=== PATIENT | female | born 2000 | race Caucasian/White ===

== ENCOUNTER 2022-11-03 09:31 | Outpatient (OUT) | payer OTHER, SELFPAY ==
--- NOTE | 2022-11-03 09:30 | US_ITS ---
[address] [address] Patient Name: POONAM GEE MRN: [id number] date: 2000 Sex: F Assigned Patient Location: US Current Patient Location: US Accession/Order Number: [id number] Exam Date: 11/03/2022 09:31 Report Date: 11/03/2022 20:44 At the request of: CHARLETTE FALCON Procedure: US OB growth EXAMINATION: US OB growth HISTORY: SIZE INCONSISTENT WITH DATES COMPARISON: No relevant comparison available. FINDINGS: #: 1.0 Presentation: Cephalic presentation, longitudinal lie Heart Rate: 166.0 bpm Amniotic Fluid Volume: 11.8 cm cm Maximum Vertical Pocket: 5.1 cm cm 3.5 cm cm 3.3 cm cm 0.0 cm cm BIOMETRY: BPD: 8.4 cm cm; 33 weeks 4 days, 26% HC: 30.7 cm cm; 34 weeks 2 days, 13% AC: 32.7 cm cm; 36 weeks 5 days, 97% FL: 7.0 cm cm; 35 weeks 6 days, 77% EFW: 2776 g, 6 lbs. 2 oz., 84% FL/AC: 21.3 FL/BPD: 83.6 HC/AC: 0.9 GESTATIONAL AGE: LANCE by EDC: 34 weeks 3 days Age by EDC: 12/12/2022 Ultrasound Age: 35 weeks 1 day LANCE by US: 12/07/2022 US/US OB growth IMPRESSION: Abdominal circumference at the 97th percentile, otherwise normal interval growth Electronically authenticated by: ABDULKADIR REAGAN Date: 11/03/2022 20:44
== END 2022-11-03 09:32 | disposition home or self-care (01) ==
LOC: US 09:31
PROVIDERS: PCP Family Medicine; Visit Provider Obstetrics & Gynecology
DX: O26.843 Uterine size-date discrepancy, third trimester (principal); Z3A.00 Weeks of gestation of pregnancy not specified
CPT/HCPCS: 76816

== ENCOUNTER 2022-11-04 13:14 | Observation (INO) | payer OTHER, SELFPAY ==
[2022-11-04] VITALS (20 sets, daily range): BP systolic 116–136; BP diastolic 55–70; PULSE 71–100; RESP 18; TEMP 37
[2022-11-04 14:15] LABS: Amnisure NEGATIVE (NEGATIVE)
[2022-11-04] MEDS: 0.9 % SODIUM CHLORIDE 1,000 ML 999 ML IV (15:00)
[2022-11-04] MEDS: TERBUTALINE SULFATE 1 MG/ML VIAL 0.25 MG SUBQ (15:20)
--- NOTE | 2022-11-04 15:24 | US_ITS ---
The [address] [address] Patient Name: POONAM GEE MRN: [id number] date: 2000 Sex: F Assigned Patient Location: [facility] Current Patient Location: [facility] Accession/Order Number: [id number] Exam Date: 11/04/2022 15:25 Report Date: 11/04/2022 15:54 At the request of: HAI JUARES Procedure: US OB amniotic fluid vol PROCEDURE: US OB amniotic fluid vol, 11/04/2022 3:25 PM EDT CLINICAL INDICATIONS: Encounter for third trimester , leaking amniotic fluid, limited evaluation for fluid volume 1 para 0 Expected gestational age: 34 weeks 4 days Expected LANCE: 12/12/2022 COMPARISON: 11/03/2022 TECHNIQUE: Limited third trimester obstetric sonogram for amniotic fluid assessment. FINDINGS: Single living intrauterine identified, cephalic presentation. body, cardiac activity noted. Heart rate 165 bpm. Amniotic fluid index 12.1 cm, 5-95th percentile, maximum vertical pocket 5.3 cm. The fetus and placenta is otherwise not evaluated. No anatomic assessment was performed. biometry: Not performed. Maternal adnexal pathology is not demonstrated. US/US OB amniotic fluid vol IMPRESSION: 1. Single living intrauterine , cephalic presentation 2. Normal amniotic fluid index 12.1 cm, 5-95th percentile, maximum vertical pocket 5.3 cm. Electronically authenticated by: DANIKA CONTRERAS Date: 11/04/2022 15:54
--- NOTE | 2022-11-04 15:27 | P.OBHP_ITS ---
OB - H&P: HPI History of Present Illness Chief complaint: OBSERVATION : 1 Para: 0 Date of last menstrual period: DUE DATE: 12/12/22 Gestational age based on last menstrual period: 34 WEEKS 3 DAYS Narrative: [address] O[address] FALCON. PRESENTED TO [facility] WITH COMPLAINT OF POSSIBLE RUPTURE OF MEMBRANES. NO RECENT INTERCOURSE. ON [facility] THE FOLLOWING TESTS WERE ALL NEGATIVE: NITRAZINE, AMNISURE, FERN TEST. SSE DEMONSTRATED NO FLUID POOLING WITH COUGH OR LOSS OF FLUID THROUGH CERVICAL OS. ON EXAM, THE CERVIX WAS 2 CM, 50 PERCENT EFFACED, SOFT, MID TO POSTERIOR POSITION AND BALLOTTABLE. WHILE ON THE UNIT SHE BEGAN BHASKAR BUT THEY WERE NOT PAINFUL. WHILE BEING EVALUATED BY PHYSICIAN SHE RETAIL DIRECTOR A BOLUS OF 1000 CC OF LR AND 12.5 MG OF BETAMETHASONE AND 25 MCH SUBCU TERBUTALINE NOT TOCOLYTIC BUT TO WEAKEN CONTRACTIONS AND HOPEFULLY OBTAIN TIME FOR DECISION OF DISPOSITION TO BE MADE. History of Present Dating criteria: other (WE DO NOT HAVE ACCESS TO THE RECORDS THE OFFICE IS CLOSED AND THE RECORDS ARE NOT IN [employer].) care: good care Ultrasounds: other (HAS HAD MULTIPLE ULTRASOUNDS FOR DATING CONFIRMATION, ANATOMY AND MOST RECENTLY LAST WEEK FOR WEIGHT BABY MEASURING S > D) Abnormal ultrasound findings: CURRENT CHELSY PENDING complications comment: NONE Medical complications OB: none Labs Blood type: other ([facility] DOES NOT HAVE ACCESS TO THIS PATIENT'S RECORD THE OFFICE USES [employer] AND [facility] DOES NOT PERMIT [facility] TO HAVE ACCESS TO THE EHR. SO THE ONLY HISTORY OBTAINABLE IS WHAT THE PATIENT CAN RELATE) Narrative: NIYA HAS BEEN DILIGENTLY WORKING WITH THE NECESSARY PARTIES TO MAKE PATIENT RECORDS AVAILABLE TO [facility] DURING HOURS WHEN OFFICE IS CLOSED. THIS HAS BEEN AN ONGOING PROCESS AND NOT YET RESOLVED Review of Systems ROS Status of ROS 10 or more systems reviewed and unremarkable except as noted in history and below Gastrointestinal Reports: other (MILD CONTRACTIONS) Meds Home Medications and Allergies Allergies Allergy/AdvReac Type Severity Reaction Status Date / Time No Known Drug Allergies Allergy Verified 11/04/22 14:59 Exam Constitutional Vital Signs, click to edit/add: Last Vital Signs Pulse 78 11/04/22 15:25 BP 122/67 11/04/22 15:25 Documenting provider has reviewed patient's vital signs: yes Common normals: no apparent distress, average body habitus, oriented x3, no limitations, healthy appearing, alert and well nourished General appearance: cooperative, comfortable and well kempt Orientation/consciousness: Yes awake, Yes oriented to person, Yes oriented to place and Yes oriented to time HENMT Common normals: normocephalic and head/scalp atraumatic Eye Common normals: PERRL Pupil: accommodation reflex normal Neck & C-Spine Common normals: full ROM and supple Respiratory Common normals: normal respiratory effort Auscultation: clear to auscultation bilaterally Cardio Common normals: regular rate and regular rhythm GI Common normals: Normal to inspection, nondistended, normoactive bowel sounds present, soft to palpation and non-tender Inspection: other (GRAVID UTERUS) Common normals: no CVA tenderness, external appearance normal, appearance of the vagina normal and appearance of the cervix normal External Female Exam: normal appearance of the urethra Speculum exam - vagina: other (SSE: NO POOLING, NO LOSS OF FLUID WITH COUGH, NEG FERNING, NEG NITRAZINE) Speculum exam - cervix: cervical os open and other (2 CM/50%/MID TO POSTERIOR, BALLOTTABLE, VERTEX) Amniotic Fluid: no fluid (ALL TESTS FOR AMNIOTIC FLUID WERE NEGATIVE AND CHELSY WAS NORMAL AT 12CM. ) Extremity Common normals: normal to inspection and full ROM Neuro Common normals: oriented x3 and CN's II-XII intact bilaterally Sensorium/orientation: awake and alert Motor exam: strength 5/5 throughout Psych Common normals: mental status grossly normal, thought process normal, cooperative and affect normal Attitude: calm and engaged Activity/motor behavior: appropriate eye contact Results Labs Labs: [facility] WAS ABLE TO ACCESS LABS THROUGH ALLSCRIPTS: AFP NEG, HGB 13.6, HEMOGLOBIN AIC NORMAL, BLOOD TYPE O NEG, HEPATITIS NEG, RPR NEG,RUBELLA IMMUNE,HCV NEG, CT/GC NEG,VAG CULTURE NEG, PAP NEG, ONE HOUR GTT NORMAL OB - A/P Assessment and Plan (1) contractions: (2) SROM (spontaneous rupture of membranes): Plan SROM RULED OUT AT 34.3 DAYS BY SSE, AMNISURE, NITRAZINE TEST, FERNING AND NORMAL CHELSY. THIS PATIENT IS HAVING MILD CONTRACTIONS HOWEVER WE ARE OBSERVING FOR CERVICAL CHANGE. PRESENTLY SHE IS 2 CM/50/BALLOTTABLE AND VERTEX, CONSISTENCY SOFT. THE HEART TRACING IS CATEGORY I. THERE IS NO BLEEDING FROM THE VAGINA ALTHOUGH THE PATIENT DOES REPORT SHE HAS A LOW LYING PLACENTA. [facility] DOES NOT HAVE ACCESS TO THE PATIENTS EHR FROM THE OFFICE WHICH USES [employer] AND THE OWNERS OF [employer], ([facility]) NOT PERMITTING ACCESS TO AT PRESENT. SHE RECEIVED 25 MCG SUBCU OF TERBUTALINE IN ATTEMPTS TO WEAKEN CONTRACTIONS AND GAIN TIME TO FINISH EVALUATION BEFORE MAKING DECISION ON DISPOSITION. SHE WAS ALSO GIVEN ONE DOSE IM OF BETAMETHASONE 12.5 MG. FINALLY, SHE RECEIVED A BOLUS OF LR, (1000CC). IF THE CONTRACTIONS STOP, SHE WILL REMAIN ON [facility] FOR OBSERVATION FOR PTL. IF THE CONTRACTIONS DO NOT STOP SHE WILL BE TRANSFERRED TO [facility] WHICH HAS A NICU.
[2022-11-04] MEDS: 0.9 % SODIUM CHLORIDE 1,000 ML 125 ML IV (16:02)
== END 2022-11-04 19:55 | disposition short-term general hospital (02) ==
PROVIDERS: Admitting Provider Obstetrics & Gynecology; PCP Family Medicine; Visit Provider Obstetrics & Gynecology
DX: O47.03 False labor before 37 completed weeks of gestation, third trimester (principal); Z03.71 Encounter for suspected problem with amniotic cavity and membrane ruled out; Z3A.34 34 weeks gestation of pregnancy
CPT/HCPCS: 59025; 76815; 84112; 87081; 96372; G0378; G0379; J0702

== ENCOUNTER 2022-11-07 14:50 | Observation (INO) | payer OTHER, SELFPAY ==
[2022-11-07 15:04] VITALS: BP 119/74; PULSE 68; TEMP 36.6
[2022-11-07] MEDS: 0.9 % SODIUM CHLORIDE 1,000 ML 999 ML IV (15:27)
[2022-11-07] MEDS: NIFEdipine 10 MG CAPSULE 20 MG PO ×2 (15:28→21:15)
[2022-11-07] MEDS: 0.9 % SODIUM CHLORIDE 1,000 ML 125 ML IV (16:15)
--- NOTE | 2022-11-07 17:45 | PC.NURSE ---
up to BR to void. then returns to bed. denies pain or need.s
[2022-11-07] MEDS: ACETAMINOPHEN 325 MG TABLET 650 MG PO ×2 (18:01→22:16)
--- NOTE | 2022-11-07 18:45 | PC.NURSE ---
eats supper, denies ctx. reports relief from GARCIA after tylenol.
--- NOTE | 2022-11-07 19:05 | W.PC.ACHO ---
Registration Status: ADM URI Primary Language: Preferred Language: Active Medications Generic Name Dose Route Start Last Admin Trade Name Coretta PRN Reason Stop Dose Admin Acetaminophen 650 mg 11/07/22 17:54 11/07/22 18:01 Acetaminophen 325 Mg Tablet PO 650 mg Q4H PRN Administration Mild Pain Sodium Chloride 1,000 mls @ 999 mls/hr 11/07/22 15:18 11/07/22 15:27 Sodium Chloride 0.9% 1,000 Ml IV 999 mls/hr .Q1H1M SATINDER Administration Sodium Chloride 1,000 mls @ 125 mls/hr 11/07/22 16:30 11/07/22 16:15 Sodium Chloride 0.9% 1,000 Ml IV 125 mls/hr .Q8H SATINDER Administration Nifedipine 20 mg 11/07/22 16:00 11/07/22 15:28 Nifedipine 10 Mg Capsule PO 20 mg Q4H SATINDER Administration IV Insertion/Site Date of IV Line Insertion [20g 11/07/22 left Forearm] IV Insertion Time [20g left 15:28 Forearm] report relinquished
--- NOTE | 2022-11-07 20:29 | W.PC.ACHO ---
Registration Status: ADM URI Primary Language: Preferred Language: Report received at 1900. Active Medications Generic Name Dose Route Start Last Admin Trade Name Freq PRN Reason Stop Dose Admin Acetaminophen 650 mg 11/07/22 17:54 11/07/22 18:01 Acetaminophen 325 Mg Tablet PO 650 mg Q4H PRN Administration Mild Pain Sodium Chloride 1,000 mls @ 999 mls/hr 11/07/22 15:18 11/07/22 15:27 Sodium Chloride 0.9% 1,000 Ml IV 999 mls/hr .Q1H1M SATINDER Administration Sodium Chloride 1,000 mls @ 125 mls/hr 11/07/22 16:30 11/07/22 16:15 Sodium Chloride 0.9% 1,000 Ml IV 125 mls/hr .Q8H SATINDER Administration Nifedipine 20 mg 11/07/22 16:00 11/07/22 15:28 Nifedipine 10 Mg Capsule PO 20 mg Q4H SATINDER Administration IV Insertion/Site Date of IV Line Insertion [20g 11/07/22 left Forearm] IV Insertion Time [20g left 15:28 Forearm]
[2022-11-07 21:13] VITALS: TEMP 36.7
[2022-11-07 21:14] VITALS: BP 118/62; PULSE 86
[2022-11-07 21:15] VITALS: BP 118/62
[2022-11-07] MEDS: ZOLPIDEM TARTRATE 10 MG TABLET PO (23:09)
[2022-11-08 01:42] VITALS: BP 120/67
[2022-11-08] MEDS: NIFEdipine 10 MG CAPSULE PO ×2 (01:42→05:39)
[2022-11-08 01:43] VITALS: BP 120/67; PULSE 103
[2022-11-08 02:27] VITALS: RESP 16
[2022-11-08 05:39] VITALS: BP 117/65
[2022-11-08 05:40] VITALS: BP 117/65; PULSE 93
[2022-11-08 08:11] VITALS: BP 116/72; PULSE 85
--- NOTE | 2022-11-08 08:31 | P.OBPRC_ITS ---
Procedure Pre-op/Post-op diagnoses: iup at 39wks, breech presentation Procedure: NAME OF PROCEDURE: [ section ] PROCEDURE: Patient was taken back to the Operating Room where she was given a spinal anesthesia with Duramorph without difficulty. She was prepped and draped in the normal sterile fashion. A Pfannenstiel skin incision was then made 2 cm above the symphysis pubis and carried down to underlying rectus fascia using a Bovie. The fascia was incised in the midline and extended laterally using Oneill scissors. Two Lucrecia clamps were placed on the superior aspect of the fascia and dissected off the underlying rectus muscles. The same was performed on the inferior aspect as well. The muscles were then in the midline. Peritoneum was identified and entered bluntly. The peritoneum was then extended superiorly and inferiorly with good visualization of the bladder. The bladder blade was inserted. A low transverse incision was made on the patient's uterus and extended laterally digitally. The infant was then delivered atraumatically after the bladder blade was removed in the cephalic position. The cord was clamped and cut. Cord blood was obtained. The infant was handed off to awaiting team. The patient's placenta was spontaneously delivered. The uterus was then exteriorized. The uterus was cleared of all clots and debris. The bladder blade was reinserted. The patient's uterine incision was closed using #0 Vicryl in a running lock fashion. Excellent hemostasis was assured. The uterus was then returned to the patient's abdomen. The patient's abdomen was copiously irrigated using warm saline. Peritoneal gutters were cleared of all clots and debris. Again excellent hemostasis was assured. The patient's peritoneum was closed using 3-0 Vicryl in a running fashion. The patient's fascia was closed using #0 Vicryl in a running fashion. The patient's skin was closed using 4-0 Vicryl subcuticularly. The patient tolerated the procedure well. Sponge, lap, and needle counts were correct x2. The patient was taken to the Recovery Room in stable condition. Candle Making Supervisor: Kath Thomas Estimated blood loss (mL): 575 Disposition: PACU Anesthesia type: Spinal
--- NOTE | 2022-11-08 08:39 | US_ITS ---
[address] [address] Patient Name: POONAM GEE MRN: [facility]:[id number] date: 2000 Sex: F Assigned Patient Location: [facility] Current Patient Location: [facility] Accession/Order Number: [id number] Exam Date: 11/08/2022 08:42 Report Date: 11/08/2022 09:25 At the request of: CHARLETTE FALCON Procedure: US OB BPP w non-stress EXAM: US OB BPP w non-stress HISTORY: ctx COMPARISON: Obstetric ultrasound dated 11/04/2022 and 11/03/2022. TECHNIQUE: Routine sonographic biophysical profile. FINDINGS: breathing movement: Adequate, score 2 body movement: Adequate, score 2 tone: Adequate, score 2 Amniotic fluid: Adequate, score 2 Normal sonographic biophysical profile with a score of 8/8 There is a single live intrauterine with a heart rate of 141 bpm. There is adequate amount of amniotic fluid with the amniotic fluid index measuring 11.4 cm US/US OB BPP w non-stress IMPRESSION: Single live intrauterine with a heart rate of 141 bpm. Normal sonographic biophysical profile with a score of 8/8. Adequate amount of amniotic fluid with the amniotic fluid index measuring 11.4 cm. Electronically authenticated by: DEDE MARTINEZ Date: 11/08/2022 09:25
== END 2022-11-08 09:45 | disposition home or self-care (01) ==
PROVIDERS: Admitting Provider Obstetrics & Gynecology; PCP Family Medicine; Visit Provider Obstetrics & Gynecology
DX: O47.9 False labor, unspecified (principal); Z3A.00 Weeks of gestation of pregnancy not specified
CPT/HCPCS: 59025; 76818; G0378; G0379

== ENCOUNTER 2022-11-08 23:31 | Inpatient (IN) | payer OTHER, SELFPAY ==
[2022-11-08 23:50] VITALS: BP 128/76; PULSE 86; TEMP 36.6
[2022-11-09] VITALS (62 sets, daily range): BP systolic 99–168; BP diastolic 55–86; PULSE 69–109; RESP 16–20; TEMP 27.9–37
[2022-11-09 00:12] LABS: Bilirubin Urine NEGATIVE (NEGATIVE); Blood Urine NEGATIVE (NEGATIVE); Clarity Urine CLEAR (CLEAR); Color Urine LT. YELLOW (YELLOW); Glucose Urine UA NEGATIVE (NEGATIVE); Ketones Urine NEGATIVE (NEGATIVE); Leukocyte Esterase Urine NEGATIVE (NEGATIVE); Nitrite Urine NEGATIVE (NEGATIVE); Protein Urine NEGATIVE (NEG/TRACE); Urobilinogen Urine 0.2 EU/dL (0.2-1.0)
[2022-11-09 00:12] LABS: Amnisure POSITIVE (NEGATIVE)
[2022-11-09 00:16] LABS: Urine Microscopic Indicated NO
[2022-11-09 01:09] LABS: Amphetamine Screen Urine NEGATIVE (NEGATIVE); Barbiturates Screen Urine NEGATIVE (NEGATIVE); Benzodiazepines Screen Urine NEGATIVE (NEGATIVE); Buprenorphine Screen Urine NEGATIVE (NEGATIVE); Cannabinoid Screen Urine NEGATIVE (NEGATIVE); Cocaine Screen Urine NEGATIVE (NEGATIVE); Methadone Screen Urine NEGATIVE (NEGATIVE); Methamphetamines Screen Urine NEGATIVE (NEGATIVE); Opiate Screen Urine NEGATIVE (NEGATIVE); Oxycodone Screen Urine NEGATIVE (NEGATIVE); Phencyclidine Screen Urine NEGATIVE (NEGATIVE); Tricyclic Antidepressant Urine NEGATIVE (NEGATIVE)
[2022-11-09 01:10] LABS: Hematocrit 31.4 % (36.0-48.0); Hemoglobin 10.3 g/dL (12.0-16.0); Mean Corpuscular HGB Conc 32.8 g/dL (29.9-35.2); Mean Corpuscular Hemoglobin 26.8 pg (26.7-34.0); Mean Corpuscular Volume 81.8 fL (81.0-99.0); Mean Platelet Volume 9.2 fL (9.5-13.5); Platelet Count 411 10^3/uL (150-450); Red Blood Count 3.84 10^6/uL (4.20-5.40); Red Cell Distribution Width 13.2 % (11.0-15.0); White Blood Count 11.5 10^3/uL (4.0-11.0)
[2022-11-09] MEDS: 0.9 % SODIUM CHLORIDE 1,000 ML 125 ML IV (01:24)
[2022-11-09] MEDS: AMPICILLIN SODIUM 2,000 MG in 0.9 % SODIUM CHLORIDE 100 ML 100 MG IV (01:29)
[2022-11-09] MEDS: FENTANYL CITRATE/PF 100 MCG/2 ML VIAL EPIDURAL (04:06)
[2022-11-09] MEDS: 0.9 % SODIUM CHLORIDE 1,000 ML 1000 ML IV (04:08)
[2022-11-09] MEDS: ROPIVACAINE HCL/PF 400 MG/200 ML PREMIX 12 MG EPIDURAL (04:09)
[2022-11-09] MEDS: AMPICILLIN SODIUM 1,000 MG in 0.9 % SODIUM CHLORIDE 50 ML 50 MG IV ×2 (05:21→09:26)
--- NOTE | 2022-11-09 12:32 | PM.OBPRCVD ---
Procedure events: Labor < 37 Weeks Intrapartal events: None Induction method: none Delivery monitor: external FHT and external uterine Route of delivery: Episiotomy Description: midline Laceration description: perineal - 2nd degree Delivery repair: Vicryl Estimated blood loss (mL): 250 Anesthesia type: Epidural Disposition: PACU Infant Delivery date: 11/09/22 Gender: female presentation: vertex Placental delivery description: Spontaneous cord description: 3 Vessels and Nuchal Cord
[2022-11-09] MEDS: IBUPROFEN 600 MG TABLET PO (13:53)
--- NOTE | 2022-11-09 19:18 | W.PC.ACHO ---
Registration Status: ADM IN Primary Language: Swiss Preferred Language: Swiss Report given to Jeovany Rivera RN. Care relinquished. Active Medications Generic Name Dose Route Start Last Admin Trade Name Coretta PRN Reason Stop Dose Admin Acetaminophen 650 mg 11/09/22 12:34 Acetaminophen 325 Mg Tablet PO Q6H PRN Mild Pain Al Hydroxide/Mg Hydroxide 2,400 mg 11/09/22 12:34 Magnesium Hydroxide 2,400 Mg/10 Ml Oral.Susp PO Q6H PRN Dyspepsia Benzocaine/Menthol 1 applic 11/09/22 13:13 Benzocaine/Menthol 85 Gram Bottle TOPICAL ONCE PRN Pain Carboprost Tromethamine 250 mcg 11/09/22 00:42 Carboprost Tromethamine 250 Mcg/Ml 1 Ml Vial IM 11/10/22 13:00 Q15M PRN Bleeding Docusate Sodium 100 mg 11/10/22 09:00 Docusate Sodium 100 Mg Capsule PO BID SATINDER Sodium Chloride 1,000 mls @ 125 mls/hr 11/09/22 00:45 11/09/22 16:40 Sodium Chloride 0.9% 1,000 Ml IV Infused .Q8H SATINDER Infusion Ampicillin 1,000 mg/ Sodium 50 mls @ 100 mls/hr 11/09/22 05:00 11/09/22 16:38 Chloride IV Not Given Q4H SATINDER Oxytocin 20 unit/ Sodium 1,002 mls @ 125 mls/hr 11/09/22 12:45 11/09/22 13:32 Chloride IV 11/09/22 20:44 125 mls/hr Q8H SATINDER 125 mls/hr Administration Ibuprofen 600 mg 11/09/22 12:34 11/09/22 13:53 Ibuprofen 600 Mg Tablet PO 600 mg Q6H PRN Administration Moderate Pain Methylergonovine Maleate 0.2 mg 11/09/22 00:42 Methylergonovine Maleate 0.2 Mg/Ml Ampule IM 11/10/22 13:00 ONCE PRN Uterine Contractility/Contract Methylergonovine Maleate 0.2 mg 11/09/22 00:42 Methylergonovine Maleate 0.2 Mg Tablet PO 11/10/22 13:00 Q4H PRN Uterine Contractility/Contract Misoprostol 600 mcg 11/09/22 00:42 Misoprostol 100 Mcg Tablet PO 11/10/22 13:00 ONCE PRN Uterine Bleeding Misoprostol 800 mcg 11/09/22 00:42 Misoprostol 100 Mcg Tablet SL 11/10/22 13:00 ONCE PRN Uterine Bleeding Misoprostol 1,000 mcg 11/09/22 00:42 Misoprostol 100 Mcg Tablet [place] 11/10/22 13:00 ONCE PRN Uterine Bleeding Ondansetron HCl 4 mg 11/09/22 00:42 Ondansetron Pf 4 Mg/2 Ml Vial IV Q6H PRN Nausea And Vomiting Ondansetron HCl 4 mg 11/09/22 00:42 Ondansetron 4 Mg Rapdis Tablet SL Q6H PRN Nausea And Vomiting Senna 17.2 mg 11/09/22 20:00 Sennosides 8.6 Mg Tablet PO QHS PRN Constipation Simethicone 80 mg 11/09/22 12:34 Simethicone 80 Mg Tab.Chew PO QID PRN Abdominal Distention Temazepam 15 mg 11/09/22 20:00 Temazepam 15 Mg Capsule PO BEDTIME PRN Sleep Witch Blanka/Glycerin 1 each 11/09/22 13:15 Glycerin/Witch Blanka 1 Each Jar TOPICAL ONCE PRN Pain Diet Category Date Time Status Regular Consistency Diet Diet 11/09/22 Dinner Active Consults Category Date Time Status Consult to Anesthesiology Routine Cons 11/09/22 Ordered IV Insertion/Site Date of IV Line Insertion [ 11/09/22 Short PIV (<1.75 in) 20g right Wrist] IV Insertion Time [Short PIV ( 00:40 <1.75 in) 20g right Wrist] Neurology Patient orientation (short person,place,time,situation list) Respiratory Oxygen Delivery Method Room Air Renal Bladder Pattern Continent Catheter Date Urinary Catheter Removed 11/09/22 Date Urinary Catheter Removed 11/09/22 Date Urinary Catheter Removed 11/09/22 Date Urinary Catheter Removed 11/09/22 Date Urinary Catheter Removed 11/09/22 Date Urinary Catheter Removed 11/09/22 Date Urinary Catheter Removed 11/09/22 Date Urinary Catheter Removed 11/09/22
--- NOTE | 2022-11-09 19:28 | W.PC.ACHO ---
Registration Status: ADM IN Primary Language: Andorran Preferred Language: Andorran report received at 1900. Active Medications Generic Name Dose Route Start Last Admin Trade Name Freq PRN Reason Stop Dose Admin Acetaminophen 650 mg 11/09/22 12:34 Acetaminophen 325 Mg Tablet PO Q6H PRN Mild Pain Al Hydroxide/Mg Hydroxide 2,400 mg 11/09/22 12:34 Magnesium Hydroxide 2,400 Mg/10 Ml Oral.Susp PO Q6H PRN Dyspepsia Benzocaine/Menthol 1 applic 11/09/22 13:13 Benzocaine/Menthol 85 Gram Bottle TOPICAL ONCE PRN Pain Carboprost Tromethamine 250 mcg 11/09/22 00:42 Carboprost Tromethamine 250 Mcg/Ml 1 Ml Vial IM 11/10/22 13:00 Q15M PRN Bleeding Docusate Sodium 100 mg 11/10/22 09:00 Docusate Sodium 100 Mg Capsule PO BID SATINDER Sodium Chloride 1,000 mls @ 125 mls/hr 11/09/22 00:45 11/09/22 16:40 Sodium Chloride 0.9% 1,000 Ml IV Infused .Q8H SATINDER Infusion Ampicillin 1,000 mg/ Sodium 50 mls @ 100 mls/hr 11/09/22 05:00 11/09/22 16:38 Chloride IV Not Given Q4H SATINDER Oxytocin 20 unit/ Sodium 1,002 mls @ 125 mls/hr 11/09/22 12:45 11/09/22 13:32 Chloride IV 11/09/22 20:44 125 mls/hr Q8H SATINDER 125 mls/hr Administration Ibuprofen 600 mg 11/09/22 12:34 11/09/22 13:53 Ibuprofen 600 Mg Tablet PO 600 mg Q6H PRN Administration Moderate Pain Methylergonovine Maleate 0.2 mg 11/09/22 00:42 Methylergonovine Maleate 0.2 Mg/Ml Ampule IM 11/10/22 13:00 ONCE PRN Uterine Contractility/Contract Methylergonovine Maleate 0.2 mg 11/09/22 00:42 Methylergonovine Maleate 0.2 Mg Tablet PO 11/10/22 13:00 Q4H PRN Uterine Contractility/Contract Misoprostol 600 mcg 11/09/22 00:42 Misoprostol 100 Mcg Tablet PO 11/10/22 13:00 ONCE PRN Uterine Bleeding Misoprostol 800 mcg 11/09/22 00:42 Misoprostol 100 Mcg Tablet SL 11/10/22 13:00 ONCE PRN Uterine Bleeding Misoprostol 1,000 mcg 11/09/22 00:42 Misoprostol 100 Mcg Tablet [place] 11/10/22 13:00 ONCE PRN Uterine Bleeding Ondansetron HCl 4 mg 11/09/22 00:42 Ondansetron Pf 4 Mg/2 Ml Vial IV Q6H PRN Nausea And Vomiting Ondansetron HCl 4 mg 11/09/22 00:42 Ondansetron 4 Mg Rapdis Tablet SL Q6H PRN Nausea And Vomiting Senna 17.2 mg 11/09/22 20:00 Sennosides 8.6 Mg Tablet PO QHS PRN Constipation Simethicone 80 mg 11/09/22 12:34 Simethicone 80 Mg Tab.Chew PO QID PRN Abdominal Distention Temazepam 15 mg 11/09/22 20:00 Temazepam 15 Mg Capsule PO BEDTIME PRN Sleep Witch Blanka/Glycerin 1 each 11/09/22 13:15 Glycerin/Witch Blanka 1 Each Jar TOPICAL ONCE PRN Pain Diet Category Date Time Status Regular Consistency Diet Diet 11/09/22 Dinner Active Consults Category Date Time Status Consult to Anesthesiology Routine Cons 11/09/22 Ordered IV Insertion/Site Date of IV Line Insertion [ 11/09/22 Short PIV (<1.75 in) 20g right Wrist] IV Insertion Time [Short PIV ( 00:40 <1.75 in) 20g right Wrist] Neurology Patient orientation (short person,place,time,situation list) Respiratory Oxygen Delivery Method Room Air Renal Bladder Pattern Continent Catheter Date Urinary Catheter Removed 11/09/22 Date Urinary Catheter Removed 11/09/22 Date Urinary Catheter Removed 11/09/22 Date Urinary Catheter Removed 11/09/22 Date Urinary Catheter Removed 11/09/22 Date Urinary Catheter Removed 11/09/22 Date Urinary Catheter Removed 11/09/22 Date Urinary Catheter Removed 11/09/22
[2022-11-09] MEDS: ACETAMINOPHEN 325 MG TABLET 650 MG PO (22:03)
[2022-11-10] VITALS (12 sets, daily range): BP systolic 121–130; BP diastolic 75–79; PULSE 75–81; RESP 16; TEMP 36.2–36.7
[2022-11-10] MEDS: IBUPROFEN 600 MG TABLET PO ×4 (00:31→20:37)
[2022-11-10] MEDS: ACETAMINOPHEN 325 MG TABLET 650 MG PO ×3 (04:34→23:18)
[2022-11-10 06:15] LABS: Basophils Absolute Auto 0.1 10^3/uL (0.0-0.1); Basophils Percent Auto 0.5 % (0.2-2.0); Eosinophils Absolute Auto 0.2 10^3/uL (0.0-0.7); Eosinophils Percent Auto 1.4 % (0.9-7.0); Hematocrit 30.9 % (36.0-48.0); Hemoglobin 9.8 g/dL (12.0-16.0); Immature Granulocytes Abs Auto 0.17 10^3/uL (0.00-0.03); Lymphocytes Absolute Auto 4.1 10^3/uL (1.2-3.8); Lymphocytes Percent Auto 25.3 % (20.5-60.0); Mean Corpuscular HGB Conc 31.7 g/dL (29.9-35.2); Mean Corpuscular Hemoglobin 26.1 pg (26.7-34.0); Mean Corpuscular Volume 82.4 fL (81.0-99.0); Mean Platelet Volume 8.7 fL (9.5-13.5); Monocytes Absolute Auto 1.2 10^3/uL (0.3-0.8); Monocytes Percent Auto 7.6 % (1.7-12.0); Neutrophils Absolute Auto 10.5 10^3/uL (1.4-6.5); Neutrophils Percent Auto 64.2 % (43.0-75.0); Platelet Count 323 10^3/uL (150-450); Red Blood Count 3.75 10^6/uL (4.20-5.40); Red Cell Distribution Width 13.3 % (11.0-15.0); White Blood Count 16.3 10^3/uL (4.0-11.0)
--- NOTE | 2022-11-10 08:37 | PC.NURSE ---
Pt education on late infant. Handouts x 3 given for LPI information with discussion, demo and time for questions. Parents appear receptive to education and open to making feeding plan that includes latching, possible shield use, pumping and feeding easy milk to the baby. The importance of colostrum for the LPI, manual expression, pump use and skin to skin reviewed. No further questions at this time. Parents verbalize understanding.
--- NOTE | 2022-11-10 08:43 | PM.OBPN ---
OB - PN: Subj Subjective Patient comments: no complaints [place] status: doing well Exam Constitutional Vital Signs, click to edit/add: Last Vital Signs Temp 97.5 F L 11/10/22 04:34 Pulse 79 11/10/22 08:34 Resp 16 11/10/22 04:25 BP 123/76 11/10/22 08:34 O2 Del Method Room Air 11/10/22 00:00 Documenting provider has reviewed patient's vital signs: yes Common normals: no apparent distress General appearance: cooperative, comfortable and well kempt Orientation/consciousness: Yes awake, Yes oriented to person, Yes oriented to place and Yes oriented to time HENMT Common normals: normocephalic Neck & C-Spine Common normals: full ROM Lymph Lymphatic: no lymphadenopathy noted Chest Common normals: inspection of chest normal Respiratory Common normals: normal respiratory effort Effort & inspection: able to speak in complete sentences Auscultation: clear to auscultation bilaterally Cardio Common normals: no JVD, regular rate and regular rhythm Rate: regular rate Rhythm: regular rhythm GI Common normals: Normal to inspection, nondistended, normoactive bowel sounds present Inspection: normal to inspection Auscultation: normoactive bowel sounds Palpation: soft and firm Common normals: no CVA tenderness Back & Pelvis Common normals: no CVA tenderness Extremity Common normals: full ROM Neuro Common normals: oriented x3 Sensorium/orientation: awake, alert, oriented to person, oriented to place and oriented to time Psych Attitude: calm Results Labs Labs: Short CBC 11/10/22 Range/Units 06:06 WBC 16.3 H (4.0-11.0) 10^3/uL Hgb 9.8 L (12.0-16.0) g/dL Hct 30.9 L (36.0-48.0) % Plt Count 323 (150-450) 10^3/uL OB - PN: A/P Plan - Vaginal Delivery day: 1 Plan: routine care Time Spent with Patient Time: Total time spent is greater than 50% in coordination of care (as documented) at patient's floor/unit and/or counseling patient: Total time spent with greater than 50% in coordination of care (as documented) at patient's floor/unit and/or counseling patient: less than 15 minutes
[2022-11-10] MEDS: DOCUSATE SODIUM 100 MG CAPSULE PO ×2 (09:11→20:38)
[2022-11-10] MEDS: FERROUS SULFATE 325 MG TABLET PO ×2 (09:11→20:37)
--- NOTE | 2022-11-10 11:45 | PC.NURSE ---
Attentive to education. Working well with 35 week infant. Receptive to positioning and deep latch technique. Handles baby well. Infant latches and suckles few times then stops. Open to use of nipple shield, explanation of use in LPI and benefits and cons reviewed. Parents agreeable. Shown correct application of shield and demo given. to breast with shield and continues to suckle with bursts and pauses. Mom aware of feeing plans and cooperative. Support given.
--- NOTE | 2022-11-10 19:09 | W.PC.ACHO ---
Registration Status: ADM IN Primary Language: Burmese Preferred Language: Burmese Active Medications Generic Name Dose Route Start Last Admin Trade Name Freq PRN Reason Stop Dose Admin Acetaminophen 650 mg 11/09/22 12:34 11/10/22 16:27 Acetaminophen 325 Mg Tablet PO 650 mg Q6H PRN Administration Mild Pain Al Hydroxide/Mg Hydroxide 2,400 mg 11/09/22 12:34 Magnesium Hydroxide 2,400 Mg/10 Ml Oral.Susp PO Q6H PRN Dyspepsia Docusate Sodium 100 mg 11/10/22 09:00 11/10/22 09:11 Docusate Sodium 100 Mg Capsule PO 100 mg BID SATINDER Administration Ferrous Sulfate 325 mg 11/10/22 09:00 11/10/22 09:11 Ferrous Sulfate 325 Mg Tablet PO 325 mg BID SATINDER Administration Sodium Chloride 1,000 mls @ 125 mls/hr 11/09/22 00:45 11/09/22 16:40 Sodium Chloride 0.9% 1,000 Ml IV Infused .Q8H [facility] Infusion Ampicillin 1,000 mg/ Sodium 50 mls @ 100 mls/hr 11/09/22 05:00 11/09/22 16:38 Chloride IV Not Given Q4H [facility] Ibuprofen 600 mg 11/09/22 12:34 11/10/22 14:50 Ibuprofen 600 Mg Tablet PO 600 mg Q6H PRN Administration Moderate Pain Ondansetron HCl 4 mg 11/09/22 00:42 Ondansetron Pf 4 Mg/2 Ml Vial IV Q6H PRN Nausea And Vomiting Ondansetron HCl 4 mg 11/09/22 00:42 Ondansetron 4 Mg Rapdis Tablet SL Q6H PRN Nausea And Vomiting Senna 17.2 mg 11/09/22 20:00 Sennosides 8.6 Mg Tablet PO QHS PRN Constipation Simethicone 80 mg 11/09/22 12:34 Simethicone 80 Mg Tab.Chew PO QID PRN Abdominal Distention Temazepam 15 mg 11/09/22 20:00 Temazepam 15 Mg Capsule PO BEDTIME PRN Sleep Respiratory Oxygen Delivery Method Room Air Oxygen Delivery Method Room Air Oxygen Delivery Method Room Air Bowels Bowel Pattern No Bowel Movement
--- NOTE | 2022-11-10 19:27 | W.PC.ACHO ---
Registration Status: ADM IN Primary Language: Bahraini Preferred Language: Bahraini Report received at 1910 Active Medications Generic Name Dose Route Start Last Admin Trade Name Freq PRN Reason Stop Dose Admin Acetaminophen 650 mg 11/09/22 12:34 11/10/22 16:27 Acetaminophen 325 Mg Tablet PO 650 mg Q6H PRN Administration Mild Pain Al Hydroxide/Mg Hydroxide 2,400 mg 11/09/22 12:34 Magnesium Hydroxide 2,400 Mg/10 Ml Oral.Susp PO Q6H PRN Dyspepsia Docusate Sodium 100 mg 11/10/22 09:00 11/10/22 09:11 Docusate Sodium 100 Mg Capsule PO 100 mg BID SATINDER Administration Ferrous Sulfate 325 mg 11/10/22 09:00 11/10/22 09:11 Ferrous Sulfate 325 Mg Tablet PO 325 mg BID SATINDER Administration Sodium Chloride 1,000 mls @ 125 mls/hr 11/09/22 00:45 11/09/22 16:40 Sodium Chloride 0.9% 1,000 Ml IV Infused .Q8H SATINDER Infusion Ampicillin 1,000 mg/ Sodium 50 mls @ 100 mls/hr 11/09/22 05:00 11/09/22 16:38 Chloride IV Not Given Q4H SATINDER Ibuprofen 600 mg 11/09/22 12:34 11/10/22 14:50 Ibuprofen 600 Mg Tablet PO 600 mg Q6H PRN Administration Moderate Pain Ondansetron HCl 4 mg 11/09/22 00:42 Ondansetron Pf 4 Mg/2 Ml Vial IV Q6H PRN Nausea And Vomiting Ondansetron HCl 4 mg 11/09/22 00:42 Ondansetron 4 Mg Rapdis Tablet SL Q6H PRN Nausea And Vomiting Senna 17.2 mg 11/09/22 20:00 Sennosides 8.6 Mg Tablet PO QHS PRN Constipation Simethicone 80 mg 11/09/22 12:34 Simethicone 80 Mg Tab.Chew PO QID PRN Abdominal Distention Temazepam 15 mg 11/09/22 20:00 Temazepam 15 Mg Capsule PO BEDTIME PRN Sleep Respiratory Oxygen Delivery Method Room Air Oxygen Delivery Method Room Air Oxygen Delivery Method Room Air Bowels Bowel Pattern No Bowel Movement
[2022-11-11] MEDS: IBUPROFEN 600 MG TABLET PO ×2 (05:12→10:50)
--- NOTE | 2022-11-11 07:20 | W.PC.ACHO ---
Registration Status: ADM IN Primary Language: Burmese Preferred Language: Burmese report given 0710. Active Medications Generic Name Dose Route Start Last Admin Trade Name Freq PRN Reason Stop Dose Admin Acetaminophen 650 mg 11/09/22 12:34 11/10/22 23:18 Acetaminophen 325 Mg Tablet PO 650 mg Q6H PRN Administration Mild Pain Al Hydroxide/Mg Hydroxide 2,400 mg 11/09/22 12:34 Magnesium Hydroxide 2,400 Mg/10 Ml Oral.Susp PO Q6H PRN Dyspepsia Docusate Sodium 100 mg 11/10/22 09:00 11/10/22 20:38 Docusate Sodium 100 Mg Capsule PO 100 mg BID SATINDER Administration Ferrous Sulfate 325 mg 11/10/22 09:00 11/10/22 20:37 Ferrous Sulfate 325 Mg Tablet PO 325 mg BID SATINDER Administration Sodium Chloride 1,000 mls @ 125 mls/hr 11/09/22 00:45 11/09/22 16:40 Sodium Chloride 0.9% 1,000 Ml IV Infused .Q8H SATINDER Infusion Ampicillin 1,000 mg/ Sodium 50 mls @ 100 mls/hr 11/09/22 05:00 11/09/22 16:38 Chloride IV Not Given Q4H SATINDER Ibuprofen 600 mg 11/09/22 12:34 11/11/22 05:12 Ibuprofen 600 Mg Tablet PO 600 mg Q6H PRN Administration Moderate Pain Ondansetron HCl 4 mg 11/09/22 00:42 Ondansetron Pf 4 Mg/2 Ml Vial IV Q6H PRN Nausea And Vomiting Ondansetron HCl 4 mg 11/09/22 00:42 Ondansetron 4 Mg Rapdis Tablet SL Q6H PRN Nausea And Vomiting Senna 17.2 mg 11/09/22 20:00 Sennosides 8.6 Mg Tablet PO QHS PRN Constipation Simethicone 80 mg 11/09/22 12:34 Simethicone 80 Mg Tab.Chew PO QID PRN Abdominal Distention Temazepam 15 mg 11/09/22 20:00 Temazepam 15 Mg Capsule PO BEDTIME PRN Sleep Respiratory Oxygen Delivery Method Room Air Oxygen Delivery Method Room Air Bowels Bowel Pattern No Bowel Movement
[2022-11-11] MEDS: ACETAMINOPHEN 325 MG TABLET 650 MG PO (08:15)
[2022-11-11] MEDS: DOCUSATE SODIUM 100 MG CAPSULE PO (08:15)
[2022-11-11] MEDS: FERROUS SULFATE 325 MG TABLET PO (08:15)
[2022-11-11 08:47] VITALS: BP 115/71; PULSE 104; RESP 16; TEMP 36.9
--- NOTE | 2022-11-11 09:56 | P.OBPN_ITS ---
OB - PN: Subj Subjective Patient comments: no complaints Wild Horse status: doing well Exam Constitutional Vital Signs, click to edit/add: Last Vital Signs Temp 98.5 F 11/11/22 08:47 Pulse 104 H 11/11/22 08:47 Resp 16 11/11/22 08:47 BP 115/71 11/11/22 08:47 O2 Del Method Room Air 11/10/22 23:15 Documenting provider has reviewed patient's vital signs: yes Common normals: no apparent distress Respiratory Common normals: normal respiratory effort and clear to auscultation bilaterally Cardio Common normals: regular rate and regular rhythm GI Common normals: Normal to inspection, nondistended, normoactive bowel sounds present Extremity Common normals: no clubbing, cyanosis or edema and no calf tenderness OB - PN: A/P Plan - Vaginal Delivery day: 2 Plan: routine care, discharge home and follow up 6 weeks Time Spent with Patient Time: Total time spent is greater than 50% in coordination of care (as documented) at patient's floor/unit and/or counseling patient: Total time spent with greater than 50% in coordination of care (as documented) at patient's floor/unit and/or counseling patient: less than 15 minutes
== END 2022-11-11 11:05 | disposition home or self-care (01) | DRG 560 ==
PROVIDERS: Admitting Provider Obstetrics & Gynecology; PCP Family Medicine; Visit Provider Obstetrics & Gynecology
DX: O60.14X0 Preterm labor third trimester with preterm delivery third trimester, not applicable or unspecified (principal); Z3A.35 35 weeks gestation of pregnancy; Z37.0 Single live birth; O70.1 Second degree perineal laceration during delivery; O69.81X0 Labor and delivery complicated by cord around neck, without compression, not applicable or unspecified
CPT/HCPCS: 36415; 51702; 59025; 59050; 59410; 76818; 80307; 81003; 84112; 85025; 85027; 86850; 86900; 86901; 96365; 96375; 96376; G0378; G0379

== ENCOUNTER 2023-12-14 12:04 | Outpatient (OUT) | payer OTHER, SELFPAY ==
[2023-12-14 12:18] LABS: Basophils Percent Auto 0.6 % (0.2-2.0); Eosinophils Absolute Auto 0.1 10^3/uL (0.0-0.7); Hematocrit 41.8 % (36.0-48.0); Hemoglobin 14.3 g/dL (12.0-16.0); Immature Granulocytes Abs Auto 0.01 10^3/uL (0.00-0.03); Immature Granulocytes Pct Auto 0.2 % (0.0-0.5); Lymphocytes Absolute Auto 2.5 10^3/uL (1.2-3.8); Lymphocytes Percent Auto 39.4 % (20.5-60.0); Mean Corpuscular HGB Conc 34.2 g/dL (29.9-35.2); Mean Corpuscular Hemoglobin 29.7 pg (26.7-34.0); Mean Corpuscular Volume 86.9 fL (81.0-99.0); Mean Platelet Volume 9.1 fL (9.5-13.5); Monocytes Absolute Auto 0.5 10^3/uL (0.3-0.8); Monocytes Percent Auto 7.8 % (1.7-12.0); Neutrophils Absolute Auto 3.2 10^3/uL (1.4-6.5); Platelet Count 295 10^3/uL (150-450); Red Blood Count 4.81 10^6/uL (4.20-5.40); Red Cell Distribution Width 11.9 % (11.0-15.0); White Blood Count 6.5 10^3/uL (4.0-11.0)
[2023-12-14 13:03] LABS: Estimated Average Glucose 94 mg/dL; Glycohemoglobin A1C 4.9 % (4.5-6.2)
[2023-12-14 13:28] LABS: Alanine Aminotransferase 20 U/L (14-59); Albumin Globulin Ratio 1.2; Albumin Level 4.2 g/dL (3.4-5.0); Alkaline Phosphatase 123 U/L (46-116); Anion Gap 12.6; Aspartate Amino Transferase 17 U/L (15-37); BUN Creatinine Ratio 17.2; Bilirubin Total 0.8 mg/dL (0.2-1.0); Calcium 8.8 mg/dL (8.5-10.1); Carbon Dioxide 28.3 mmol/L (21.0-32.0); Chloride 100 mmol/L (98-107); Chol HDL Ratio 2.2; Cholesterol 131 mg/dL (<=200); Estimated GFR (African America >60 (>=60); Estimated GFR (Non-African Ame >60 (>=60); Globulin 3.4 g/dL; Glucose 80 mg/dL (74-106); HDL Cholesterol 59 mg/dL (40-60); Potassium 3.9 mmol/L (3.5-5.1); Sodium 137 mmol/L (136-145); Thyroid Stimulating Hormone 1.924 uIU/mL (0.358-3.740); Total Protein 7.6 g/dL (6.4-8.2); Triglycerides 30 mg/dL (<=150)
[2023-12-19 12:09] LABS: Age Gdln ACOG Testing Note (.); IGP, rfx Aptima HPV ASCU Note (.)
== END 2023-12-14 12:05 | disposition home or self-care (01) ==
LOC: LAB 12:07
PROVIDERS: PCP Family Medicine; Visit Provider Physician Assistant
DX: Z01.419 Encounter for gynecological examination (general) (routine) without abnormal findings (principal)
CPT/HCPCS: 36415; 80053; 80061; 83036; 84443; 85025; 88175

== ENCOUNTER 2024-12-26 13:38 | Outpatient (REF) | payer OTHER, SELFPAY ==
--- OUTSIDE RECORDS SUMMARY | 2024-12-26 08:30 | XMS_ITS | Encounter Summary ---
Author Organization [facility] Address [address] [place] [address] Care Team Providers Care Edi Specialist Name Role Phone Fredy Plaza MD Primary Care Provider [phone] Reason for Visit * Reason Comments Well Women Visit Encounter Details Date Type Department Care Team (Latest Contact Info) Description 12/26/2024 8:30 AM EDT Procedure Visit ROXY KABA [address] [place] [address] Ese Beltrán PA [address] [place], [place] [address] Well woman exam with routine gynecological exam; Acute vaginitis Social History Tobacco Use Types Packs/Day Years Used Date Smoking Tobacco: Never Assessed Comments Unknown Sex and Gender Information Value Date Recorded Sex Assigned at Not on file Legal Sex Female 7:14 PM EDT Gender Identity Not on file Sexual Orientation Not on file documented as of this encounter Last Filed Vital Signs Vital Sign Reading Time Taken Comments Blood Pressure 100/60 12/26/2024 8:33 AM EDT Pulse - - Temperature - - Respiratory Rate - - Oxygen Saturation - - Inhaled Oxygen Concentration - - Weight 60.1 kg (132 lb 6.4 oz) 12/26/2024 8:33 A M EDT Height - - Body Mass Index 22.73 08/16/2022 12:00 PM EDT documented in this encounter Progress Notes * BEN sHu - 12/26/2024 8:30 AM EDT Reason for Appointment: Patient ID: Marcelle Pendleton is a 24 y.o. female who presents for Well Women Visit Patient presents today for Annual Exam. MEDICATIONS Current Outpatient Medications Medication Instructions norethindrone (DEBLITANE) 0.35 mg, Oral, Daily ALLERGIES No Known Allergies PROBLEMS Active Ambulatory Problems Diagnosis Date Noted No Active Ambulatory Problems Resolved Ambulatory Problems Diagnosis Date Noted No Resolved Ambulatory Problems No Additional Past Medical History HISTORY PAST MEDICAL HISTORY SOCIAL HISTORY History reviewed. No pertinent past medical history. Social History Tobacco Use Smoking status: Not on file Smokeless tobacco: Not on file Substance Use Topics Alcohol use: Not on file Drug use: Not on file FAMILY HISTORY Family History Problem Relation Name Age of Onset Breast cancer Mother SURGICAL HISTORY History reviewed. No pertinent surgical history. REVIEW OF SYSTEMS Review of Systems: Review of Systems Constitutional: Negative. HENT: Negative. Eyes: Negative. Respiratory: Negative. Cardiovascular: Negative. Gastrointestinal: Negative. Genitourinary: Negative. Musculoskeletal: Negative. Skin: Negative. Neurological: Negative. All other systems reviewed and are negative. Hematological: Negative. Endocrine: Negative. Allergic/Immunologic: Negative. OBJECTIVE Objective: Physical Exam Constitutional: Appearance: Normal appearance. She is well-developed. Genitourinary: Vulva normal. Right Adnexa: not tender and no mass present. Left Adnexa: not tender and no mass present. No cervical discharge. Breasts: Breasts are soft. Right: Normal. Left: Normal. HENT: Head: Normocephalic. Nose: Nose normal. Mouth/Throat: Mouth: Mucous membranes are moist. Cardiovascular: Rate and Rhythm: Normal rate and regular rhythm. Pulmonary: Effort: Pulmonary effort is normal. Breath sounds: Normal breath sounds. Abdominal: General: Bowel sounds are normal. There is no distension. Palpations: Abdomen is soft. Tenderness: There is no abdominal tenderness. There is no guarding or rebound. Musculoskeletal: General: No swelling. Normal range of motion. Cervical back: Normal range of motion. Right lower leg: No edema. Left lower leg: No edema. Neurological: General: No focal deficit present. Mental Status: She is alert and oriented to person, place, and time. Skin: General: Skin is warm and dry. Psychiatric: Mood and Affect: Mood normal. Behavior: Behavior normal. Vitals and nursing note reviewed. Exam conducted with a acid strength inspector present. Vitals: Estimated body mass index is 22.73 kg/m?? as calculated from the following: Height as of 08/16/22: 5' 4 . Weight as of this encounter: 132 lb 6.4 oz. BP: 100/60 Patient's last menstrual period was 11/10/2024. ASSESSMENT & PLAN ICD-10-CM 1. Well woman exam with routine gynecological exam Z01.419 Pap Smear Annual Exam: Patient presents today for an annual exam. Patient states she is doing well and has no complaints. Pap was obtained without difficulty. No orders of the defined types were placed in this encounter. Patient states she is still having pain with intercourse on the upper aspect of episotomy scar. We will send in clobetasole and premarin cream to see if it helps with symptoms. Pt also encouraged to use coconut oil to area. Follow Up: Patient is to return in one year for annual unless needed otherwise. Pt will follow up with telehealth after trying medications Documented by Marci Acevedo LPN on behalf of: BEN Hsu documented in this encounter Miscellaneous Notes * Addendum Note - BEN Hsu - 12/26/2024 8:30 AM EDTAddended by: ESE BELTRÁN on: 12/26/2024 10:09 AM Modules accepted: Orders documented in this encounter Plan of Treatment Scheduled Orders Name Type Priority Associated Diagnoses Orde r Schedule Pap Smear Pathology and Cytology Routine Well woman exam with routine gynecological exam Ordered: 12/26/2024 documented as of this encounter Visit Diagnoses Diagnosis Well woman exam with routine gynecological exam Routine gynecological examination Acute vaginitis Unspecified vaginitis and vulvovaginitis documented in this encounter Care Teams Edi Specialist Relationship Specialty Start Date End Date Fredy Plaza MD PCP - General Family Medicine 09/15/22 documented as of this encounter
--- OUTSIDE RECORDS SUMMARY | 2024-12-26 13:43 | XMS_ITS | Encounter Summary ---
Author Organization [facility] Address [address] [place] [address] Care Team Providers Care Land Surveying Survey Worker Name Role Phone Fredy Plaza MD Primary Care Provider [phone] Encounter Details Date Type Department Care Team (Late st Contact Info) Description 12/26/2024 Bamboo flowsheet [facility] [address] [facility] [phone] Ese Faria PA [address] [place], [facility] Social History Tobacco Use Types Packs/Day Years Used Date Smoking Tobacco: Never Assessed Comments Unknown Sex and Gender Information Value Date Recorded Sex Assigned at Not on file Legal Sex Female 7:14 PM EDT Gender Identity Not on file Sexual Orientation Not on file documented as of this encounter Plan of Treatment Not on file documented as of this encounter Visit Diagnoses Not on filedocumented in this encounter Care Teams Land Surveying Survey Worker Relationship Specialty Start Date End Date Fredy Plaza MD PCP - General Family Medicine 09/15/22 documented as of this encounter
--- OUTSIDE RECORDS SUMMARY | 2024-12-26 13:43 | XMS_ITS | Encounter Summary ---
Author Organization [facility] Address [address] [facility] [place] [address] Care Team Providers Care Soap Worker Name Role Phone Fredy Plaza MD Primary Care Provider [phone] Encounter Details Date Type Department Care Team (Late st Contact Info) Description 12/21/2023 Orders Only [facility] [address] [facility] [address] [place] [address] Marci Acevedo LPN [address] [place] [id number] Social History Tobacco Use Types Packs/Day Years Used Date Smoking Tobacco: Never Assessed Comments Unknown Sex and Gender Information Value Date Recorded Sex Assigned at Not on file Legal Sex Female 7:14 PM EDT Gender Identity Not on file Sexual Orientation Not on file documented as of this encounter Plan of Treatment Not on file documented as of this encounter Procedures Procedure Name Priority Date/Time Associated Diagnosis Comments PAP SMEAR Routine 12/14/2023 12:00 AM EDT documented in this encounter Results * Pap Smear (12/14/2023 12:00 AM EDT) Swab Cervical swab / Unknown us [facility] ORDERABLES Final Re sult EXTERNAL LAB documented in this encounter Visit Diagnoses Not on filedocumented in this encounter Care Teams Soap Worker Relationship Specialty Start Date End Date Fredy Plaza MD PCP - General Family Medicine 09/15/22 documented as of this encounter
--- OUTSIDE RECORDS SUMMARY | 2024-12-26 13:43 | XMS_ITS | Encounter Summary ---
Author Organization [facility] Address [address] [place] [address] Care Team Providers Care Extractions Technologist Name Role Phone Fredy Plaza MD Primary Care Provider [phone] Encounter Details Date Type Department Care Team (Late st Contact Info) Description 11/10/2022 Abstract [facility] [address] [place] [address] [place] [address] Radha [place] LPN Social History Tobacco Use Types Packs/Day Years Used Date Smoking Tobacco: Never Assessed Comments Yes Sex and Gender Information Value Date Recorded Sex Assigned at Not on file Legal Sex Female 7:14 PM EDT Gender Identity Not on file Sexual Orientation Not on file COVID-19 Exposure Response Date Recorded In the last 10 days, have yo u been in contact with someone who was confirmed or suspected to have Coronavirus/COVID-19? No / Unsure 11/07/2022 9:33 AM EDT documented as of this encounter Plan of Treatment Not on file documented as of this encounter Visit Diagnoses Not on filedocumented in this encounter Care Teams Extractions Technologist Relationship Specialty Start Date End Date Fredy Plaza MD PCP - General Family Medicine 09/15/22 documented as of this encounter
--- OUTSIDE RECORDS SUMMARY | 2024-12-26 13:43 | XMS_ITS | Encounter Summary ---
Author Organization [facility] Address [address] [facility] [place] [address] Care Team Providers Care External Auditor Name Role Phone Fredy Plaza MD Primary Care Provider [phone] Encounter Details Date Type Department Care Team (Late st Contact Info) Description 12/06/2022 Abstract [facility] [address] [place] [phone] Veronica Álvarez LPN [address] [place] [id number] Social History Tobacco Use Types Packs/Day Years [...] on filedocumented in this encounter Care Teams External Auditor Relationship Specialty Start Date End Date Fredy Plaza MD PCP - General Family Medicine 09/15/22 documented as of this encounter
--- OUTSIDE RECORDS SUMMARY | 2024-12-26 13:43 | XMS_ITS | Encounter Summary ---
Author Organization [facility] Address [address] [facility] [place] [address] Care Team Providers Care Finishing Powder Press Operator Name Role Phone Fredy Plaza MD Primary Care Provider [phone] Reason for Visit * Reason Comments Med Change Request Encounter Details Date Type Department Care Team (Late st Contact Info) Description 12/26/2024 Refill [facility] [address] [place] [address] Ese Faria PA [address] [facility] [address] [place], [facility] Acute vaginitis Social History Tobacco Use Types [...] as of this encounter Visit Diagnoses Diagnosis Acute vaginitis Unspecified vaginitis and vulvovaginitis documented in this encounter Care Teams Finishing Powder Press Operator Relationship Specialty Start Date End Date Fredy Plaza MD PCP - General Family Medicine 09/15/22 documented as of this encounter
--- OUTSIDE RECORDS SUMMARY | 2024-12-26 13:43 | XMS_ITS | Encounter Summary ---
Author Organization [facility] Address [address] [place] [address] Care Team Providers Care Director Of Accounts Receivable Name Role Phone Fredy Plaza MD Primary Care Provider [phone] Encounter Details Date Type Department Care Team (Late st Contact Info) Description 11/16/2022 Abstract [facility] [address] [facility] [place] [address] Johnson Stanton DO [address] [facility] [address] Bruce [place], [facility]11 Social History Tobacco Use Types Packs/Day Years [...] on filedocumented in this encounter Care Teams Director Of Accounts Receivable Relationship Specialty Start Date End Date Fredy Plaza MD PCP - General Family Medicine 09/15/22 documented as of this encounter
--- OUTSIDE RECORDS SUMMARY | 2024-12-26 13:43 | XMS_ITS | Encounter Summary ---
Author Organization [facility] Address [address] [facility] [place] [address] Care Team Providers Care Product Promoter Sales Person Name Role Phone Fredy Plaza MD Primary Care Provider [phone] Encounter Details Date Type Department Care Team (Latest Contact Info) Description 12/20/2024 Travel Social History Tobacco Use Types Packs/Day Years [...] on filedocumented in this encounter Care Teams Product Promoter Sales Person Relationship Specialty Start Date End Date Fredy Plaza MD PCP - General Family Medicine 09/15/22 documented as of this encounter
--- OUTSIDE RECORDS SUMMARY | 2024-12-26 13:43 | XMS_ITS | Encounter Summary ---
Author Organization [facility] Address [address] [place] [address] Care Team Providers Care Animal Surgeon Name Role Phone Fredy Plaza MD Primary Care Provider [phone] Reason for Visit * Reason Onset Date Comments Error (VOID this visit) 12/26/2024 Encounter Details Date Type Department Care Team (Late st Contact Info) Description 12/26/2024 Telephone [facility] KABA [address] [place] [address] Dhara Andres MA [address] [place] [address] Error (VOID this visit) Social History Tobacco Use Types Packs/Day Years Used Date Smoking Tobacco: Never Assessed Comments Unknown Sex and Gender Information Value Date Recorded Sex Assigned at Not on file Legal Sex Female 7:14 PM EDT Gender Identity Not on file Sexual Orientation Not on file documented as of this encounter Miscellaneous Notes * Telephone Encounter - Dhara Andres MA - 12/26/2024 11:52 AM EDT void documented in this encounter Plan of Treatment Not on file documented as of this encounter Visit Diagnoses Not on filedocumented in this encounter Care Teams Animal Surgeon Relationship Specialty Start Date End Date Fredy Plaza MD PCP - General Family Medicine 09/15/22 documented as of this encounter
--- OUTSIDE RECORDS SUMMARY | 2024-12-26 13:44 | XMS_ITS | Clinical Summary ---
Author Organization [facility] Address [address] [place] [address] Care Team Providers Care Communications Tower Climber Name Role Phone Fredy Plaza MD Primary Care Provider Allergies No known active allergies Medications norethindrone (Deblitane) 0.35 MG tabletIndication s:6 weeks follow-up ([facility]) Take 1 tablet (0.35 mg) by mouth Daily 90 tablet 11 11/20/19 25 Active clobetasol (Temovate) 0.05 % creamIndications :Acute vaginitis Apply 1 application topically Daily for 14 days 45 g 12/27/19 25 2024 Active norethindrone-et hinyl estradiol (04/29) 1-20 MG-MCG tabletIndication s:Well woman exam with routine gynecological exam Take 1 tablet by mouth Daily 28 tablet 11 12/27/19 25 2025 Active Premarin 0.625 MG/GM creamIndications :Acute vaginitis Insert 1 g into the vagina Daily Insert 1/2 applicator at bedtime nightly for 2 weeks then twice a week thereafter 1 g 3 12/27/19 25 2024 Active Estrogens Conjugated (Premarin) 0.625 MG/GM creamIndications :Acute vaginitis Insert 1 g into the vagina Daily Insert 1/2 applicator at bedtime nightly for 2 weeks then twice a week thereafter 1 g 3 12/27/19 25 2024 Discontinued Encounters Date Type Department Care Team Description 12/26/2024 8:30 AM EDT Procedure Visit [facility] [address] [facility] [place] [address] Ese Faria PA Well woman exam with routine gynecological exam; Acute vaginitis 12/26/2024 Telephone [facility] [address] [place] [address] Dhara Andres MA Error (VOID this visit) 12/26/2024 Refill [facility] [address] [place] [address] Ese Faria PA Acute vaginitis 12/26/2024 Bamboo flowsheet [facility] [address] [place] [address] Ese Faria PA 12/20/2024 Travel 11/18/2024 Refill [facility] [address] [place] [address] Johnson Stanton DO 6 weeks follow-up ([facility]) from Last 3 Months Family History Medical History Relation Name Comments Breast cancer Mother Relation Name Status Comments Mother Social History Tobacco Use Types Packs/Day Years Used Date Smoking Tobacco: Never Assessed Comments Unknown Sex and Gender Information Value Date Recorded Sex Assigned at Not on file Legal Sex Female 7:14 PM EDT Gender Identity Not on file Sexual Orientation Not on file Last Filed Vital Signs Vital Sign Reading Time Taken Comments Blood Pressure 100/60 12/26/2024 8:33 AM EDT Pulse - - Temperature - - Respiratory Rate - - Oxygen Saturation - - Inhaled Oxygen Concentration - - Weight 60.1 kg (132 lb 6.4 oz) 12/26/2024 8:33 A M EDT Height 162.6 cm (5' 4 ) 08/16/2022 12:00 PM EDT Body Mass Index 22.73 08/16/2022 12:00 PM EDT Plan of Treatment Not on file Insurance [facility] Care Teams Communications Tower Climber Relationship Specialty Start Date End Date Fredy Plaza MD PCP - General Family Medicine 09/15/22
--- OUTSIDE RECORDS SUMMARY | 2024-12-26 13:53 | XMS_ITS | CCD ---
Author Organization [facility] Care Team Providers Care It Support Consultant Name Role Phone LEIGH ANN ., ESE Admitting Unavailable WEST, DR ABDULKADIR Garcia Consulting Unavailable LEIGH ANN ., ESE Attending Unavailable REQUEST, NONE LISTED Primary Care Unavaila ble LEIGH ANN ., ESE Consulting Unavailable LEIGH ANN ., ESE Attending Unavailable LEIGH ANN ., ESE Admitting Unavailable LEIGH ANN ., ESE Consulting Unavailable TERRIE ., DR OVALLES Admitting Unavailable TERRIE ., DR OVALLES Consulting Unavailable TERRIE ., DR OVALLES Attending Unavailable TERRIE ., DR OVALLES Attending Unavailable TERRIE ., DR OVALLES Admitting Unavailable TERRIE ., DR OVALLES Consulting Unavailable TERRIE ., DR OVALLES Admitting Unavailable REQUEST, DR NONE LISTED Primary Care Unavaila ble TERRIE ., DR OVALLES Attending Unavailable TERRIE ., DR OVALLES Attending Unavailable TERRIE ., DR OVALLES Admitting Unavailable TERRIE ., DR OVALLES Consulting Unavailable TERRIE ., DR OVALLES Attending Unavailable TERRIE ., DR OVALLES Admitting Unavailable TERRIE ., DR OVALLES Consulting Unavailable ZIEBER, DR AJITH Galvez Consulting Unavailable LEIGH ANN, ESE Attending Unavailable Bola CORTEZ, [place] Primary Care Provider Bola CORTEZ, [place] Primary Care Provider Medications Current Medications Medication Drug Class(es) Dates Sig (Normalized) Sig (Original) clobetasol propionate 0.5 mg/ml topical cream (1 source) Corticosteroid Start: 12-26-2024 End: 01-09-2025 clobetasol (Temovate) 0.05 % cream Indications: Acute vaginitis Apply 1 application topically Daily for 14 days 45 g 12/26/2024 01/09/2025 Active doxycycline hyclate 100 mg oral capsule (3 sources) Tetracycline-class Drug Start: 12-14-2023 End: 12-24-2023 doxycycline (Vibramycin) 100 MG capsule Indications: Cervical inflammation Take 1 capsule (100 mg) by mouth in the morning and 1 capsule (100 mg) before bedtime. Do all this for 10 days. Take with at least 8 ounces (large glass) of water, do not lie down for 30 minutes after. 20 capsule 12/14/2023 12/24/2023 Active Ethinyl Estradiol / Ferrous fumarate / Norethindrone (1 source) Estrogen Start: 12-26-2024 End: 12-26-2025 norethindrone-ethi nyl estradiol (04/29) 1-20 MG-MCG tablet Indications: Well woman exam with routine gynecological exam Take 1 tablet by mouth Daily 28 tablet 11 12/26/2024 12/26/2025 Active norethindrone 0.35 mg oral tablet (6 sources) Start: 11-19-2024 take 1 tablet by mouth once daily norethindrone (Deblitane) 0.35 MG tablet Indications: 6 weeks follow-up ([facility]) Take 1 tablet (0.35 mg) by mouth Daily 90 tablet 11 11/19/2024 Active Start: 10-25-2023 End: 10-24-2024 take 1 tablet by mouth once daily norethindrone (Micronor) 0.35 MG tablet Indications: 6 weeks follow-up Take 1 tablet (0.35 mg) by mouth Daily 28 tablet 11 10/25/2023 10/24/2024 Active Problems Problem Classification Problem Date Documented Date Episodic/Chronic Immunizations and screening for infectious disease (2 sources) Encounter for screening for human papillomavirus (HPV); Translations: [Contact with and (suspected) exposure to infections with a predominantly sexual mode of transmission] Onset: 06-22-2022 Episodic Inflammatory diseases of female pelvic organs (3 sources) Inflammation of cervix; Translations: [Inflammatory disease of cervix uteri] 12-14-2023 Episodic Menstrual disorders (6 sources) Irregular menstruation, unspecified; Translations: [Missed period] Onset: 05-23-2022 Chronic Other female genital disorders (1 source) Other specified noninflammatory disorders of vagina; Translations: [OTH SPEC NONINFLAMMATORY D/O VAGINA] Onset: 06-22-2022 Episodic Other and delivery including normal (9 sources) Encounter for supervision of normal , unspecified, unspecified trimester; Translations: [Encounter for supervision of other normal , first trimester] Onset: 04-29-2022 Episodic Other screening for suspected conditions (not mental disorders or infectious disease) (5 sources) Encounter for screening, unspecified; Translations: [Encounter for screening for malignant neoplasm of cervix] Onset: 06-21-2022 Episodic Results Test Name Value Interpretation Reference Range Facility ALL CBC WITH AUTO DIFFon BASOPHILS ABSOLUTE AUTO 0.0 [facility] Basophils/100 WBC (Bld) 0.6 % 0.2 - 2.0 % [facility] Eosinophils/100 WBC (Bld) 2.0 % 0.9 - 7.0 % [facility] Erythrocyte distribution width (RBC) [Ratio] 11.9 % 11.0 - 15.0 % [facility] Hematocrit (Bld) [Volume fraction] 41.8 % 36.0 - 48.0 % [facility] Hemoglobin (Bld) [Mass/Vol] 14.3 g/dL 12.0 - 16.0 g/dL [facility] IMMATURE GRANULOCYTES ABS AUTO 0.01 [facility] Immature granulocytes/100 WBC (Bld) 0.2 % 0.0 - 0.5 % [facility] Interpretation and review of laboratory results Abnormal [facility] LYMPHOCYTES ABSOLUTE AUTO 2.5 [facility] Lymphocytes/100 WBC (Bld) 39.4 % 20.5 - 60.0 % [facility] MCH (RBC) [Entitic mass] 29.7 pg 26.7 - 34.0 pg [facility] MCHC (RBC) [Mass/Vol] 34.2 g/dL 29.9 - 35.2 g/dL [facility] MCV (RBC) [Entitic vol] 86.9 fL 81.0 - 99.0 fL [facility] MONOCYTES ABSOLUTE AUTO 0.5 [facility] Monocytes/100 WBC (Bld) 7.8 % 1.7 - 12.0 % [facility] NEUTROPHILS ABSOLUTE AUTO 3.2 [facility] Neutrophils/100 WBC (Bld) 50.0 % 43.0 - 75.0 % [facility] Platelet mean volume (Bld) [Entitic vol] 9.1 fL Low 9.5 - 13.5 fL [facility] EO # 0.1 [facility] PLT 295 [facility] RBC 4.81 [facility] WBC 6.5 [facility] HCG ( test) Ql (U)o n 12-14-2023 Interpretation and review of laboratory results Normal [facility] Preg Test, Ur Negative [facility] US PREG ANATOMY SINGLEon US PREG ANATOMY SINGLE EXAMINATION: US PREG ANATOMY SINGLE HISTORY: Routine care COMPARISON: No relevant comparison available. TECHNIQUE: Transabdominal sonographic examination was performed for obstetrical and evaluation. FINDINGS: Number: 1 Heart Rate: 152.5 bpm H.B. /min Amniotic Fluid Volume: Subjectively normal position: Breech presentation, longitudinal lie Placental Location: Posterior, placental edge is 0.4 cm from the cervical os, grade 0 Cervix Length: 5.2 cm , closed Normally visualized anatomy: Cerebellum, choroid plexus, cisterna magna, lateral cerebral ventricles, orbits, midline falx, hard palate, four-chamber heart, RVOT, LVOT, stomach, kidneys, bladder, umbilical cord insertion into the abdomen, three-vessel cord, cervical spine, thoracic spine, lumbar spine, sacral spine, right upper extremity, left upper extremity, right lower extremity, left lower extremity Suboptimally visualized anatomy: None BIOMETRY: BPD: 4.2 cm 18 weeks 6 days , 10% HC: 17.5 cm 20 weeks 0 days, 41% AC: 16.5 cm 21 weeks 4 days, 89% FL: 3.3 cm 20 weeks 3 days, 60% EFW:384.0 grams; 14 ounces, 90% FL/AC: 20.2 FL/BPD: 78.8 HC/AC: 1.1 GESTATIONAL AGE: Age by EDC: 20 weeks 0 days LANCE by EDC: 12/10/2022 Age by current US: 20 weeks 2 days LANCE by current US: 12/12/2022 IMPRESSION: Normal anatomy scan *Reference: [facility] Practice Guideline for the performance of Obstetric Ultrasound Examinations, January 08, 2007. Electronically authenticated by: ABDULKADIR REAGAN Date: 2022-07-25 18:10 Normal [facility] PAP ACOG PANEL 2: 21 to 29on 06-29-2022 . . Normal [facility] Comment on above: Performed By: #### [id number] #### [facility] [address] [place] [address] Dr. Tong Santiago Age Gdln ACOG Testing 21-29 [facility] Comment on above: Performed By: #### [id number] #### [facility] [address] [place] [address] Dr. Tong Santiago DIAGNOSIS: Comment [facility] Comment on above: Result Comment: NEGA TIVE FOR INTRAEPITHELIAL LESION OR MALIGNANCY. Performed By: #### 4 [id number] #### [facility] [address] [place] [address] Dr. Tong Santiago Methodology: Comment [facility] Comment on above: Result Comment: This liquid based ThinPrep(R) pap test was screened with the use of an image guided system. Performed By: #### 4 [id number] #### [facility] [address] [place] [address] Dr. Tong Santiago Note: Comment [facility] Comment on above: Result Comment: The Pap smear is a screening test designed to aid in the detection of premalignant and malignant conditions of the uterine cervix. It is not a diagnostic procedure and should not be used as the sole means of detecting cervical cancer. Both false-positive and false-negative reports do occur. . Performed By: #### 4 [id number] #### [facility] [address] [place] [address] Dr. Tong Santiago Performed by: Comment Normal [facility] Comment on above: Result Comment: Madison Noble Professor Of Theology (ASCP) Performed By: #### [id number] #### [facility] [address] [place] [address] Dr. Tong Santiago Reflex Criteria: Comment [facility] Comment on above: Result Comment: The HPV DNA reflex criteria were not met with this specimen result therefore, no HPV testing was performed. . Performed By: #### 4 [id number] #### [facility] [address] [place] [address] Dr. Tong Santiago Specimen adequacy: Comment Normal [facility] Comment on above: Result Comment: Sati sfactory for evaluation. Endocervical and/or squamous metaplastic cells (endocervical component) are present. Performed By: #### 4 [id number] #### [facility] [address] [address] [address] Tong Santiago AFP MATERNAL FOR SPINA BIFID Aon 06-23-2022 AFP MoM 1.00 Normal [facility] Comment on above: Performed By: #### A FPMAT #### [facility] [address] [address] [address] Tong Santiago AFP Value 31.6 ng/mL Normal [facility] Comment on above: Performed By: #### A FPMAT #### [facility] [address] [address] [address] Tong Santiago AFP, Serum for Spina Bifida Report Normal [facility] Comment on above: Performed By: #### A FPMAT #### [facility] [address] [place] [address] Dr. Tong Santiago Comment Comment Normal [facility] Comment on above: Result Comment: Fer Elena, Ph.D., [facility] Director . References: Available Upon Request. . Multiples Of Median Cutoffs For AFP Elevations Kurtz 2.5 Black 2.8 IDD 2.0 Twins 4.5 Abbreviation Definitions IDD - Insulin Dep Diabetes OSBR - Open Spina Bifida Risk . For further inquiries contact [facility] at [phone]. . This test was developed and its performance characteristics determined by [employer]. It has not been cleared or approved by the Food and Drug Administration. Performed By: #### A FPMAT #### [facility] [address] [place] [address] Dr. Tong Dumont Age Collection Date 15.1 weeks Normal [facility] Comment on above: Performed By: #### A FPMAT #### [facility] [address] [place] [address] Dr. Tong Santiago Gestat, Age Based on As provided Normal [facility] Comment on above: Result Comment: Reca lculations are not recommended when gestational dating by LMP and ultrasound are within 10 days. Performed By: #### A FPMAT #### [facility] [address] [place] [address] Dr. Tong Santiago Insulin Dep Diabetes No Normal [facility] Comment on above: Performed By: #### A FPMAT #### [facility] [address] [place] [address] Dr. Tong Santiago Interpretation Comment Normal [facility] Comment on above: Result Comment: Inte rpretation: Screen Negative . This result is screen negative for OSB. The AFP MoM calculated is based on the gestational age provided. MS-AFP can identify up to 80% of open neural tube defects. Closed neural tube defects and some open defects may not be detected by this test. This test does not screen for Down Syndrome or Trisomy 18. If screening for Down Syndrome or Trisomy 18 is desired, contact [facility] [employer] [facility] to discuss available options. The [employer] [employer] recommends amniocentesis be offered to women age 35 and older. Performed By: #### A FPMAT #### [facility] [address] [place] [address] Dr. Tong Santiago [age] Normal [facility] Comment on above: Performed By: #### A FPMAT #### [facility] [address] [place] [address] Dr. Tong Santiago Multiple Gestation No Normal [facility] Comment on above: Performed By: #### A FPMAT #### [facility] [address] [place] [address] Dr. Tong Santiago OSBR Risk 1 [place] [id number] [facility] Comment on above: Performed By: #### A FPMAT #### [facility] [address] [place] [address] Dr. Tong Santiago PDF . Normal [facility] Comment on above: Performed By: #### A FPMAT #### [facility] [address] [place] [address] Dr. Tong Santiago [facility] Comment on above: Performed By: #### A FPMAT #### [facility] [address] [place] [address] Dr. Tong Santiago Test Results: Negative Normal [facility] Comment on above: Performed By: #### A FPMAT #### [facility] [address] [place] [address] Dr. Tong Santiago CHLAMYDIA/GONOCOCCUS TEODORA (SW AB/URINE/PAPon 06-23-2022 Chlamydia trachomatis, TEODORA Negative Normal Negative [facility] Comment on above: Performed By: #### C T/NGNA #### [facility] [address] [place] [address] Dr. Tong Santiago Neisseria gonorrhoeae, TEODORA Negative Normal Negative [facility] Comment on above: Performed By: #### C T/NGNA #### [facility] [address] [place] [address] Dr. Tong Santiago VAGINITIS/VAGINOSIS DNA PROB Bari 06-23-2022 Janeen species Negative Normal Negative [facility] Comment on above: Performed By: #### V AGINT #### [facility] [address] [place] [address] Dr. Tong Santiago Gardnerella vaginalis Negative Normal Negative [facility] Comment on above: Performed By: #### V AGINT #### [facility] [address] [place] [address] Dr. Tong Santiago Trichomonas vaginalis Negative Normal Negative [facility] Comment on above: Performed By: #### V AGINT #### [facility] [address] [place] [address] Dr. Tong Santiago Cytology Cervical or vaginal smear or scraping studyOrdered By: Dhara Andres on 06-21-2022 [facility] HEP B SURFACE ANTIGEN SCREEN on 05-24-2022 HBsAg Screen Negative Normal Negative [facility] Comment on above: Performed By: #### H BSANS #### [facility] [address] [place] [address] Dr. Tong Santiago HEPATITIS C VIRUS AB W/ REFL EX QUANTon 05-24-2022 HCV AB Non-Reactive Normal Non Reactive [facility] Comment on above: Performed By: #### R UBIGG #### [facility] [address] [place] [address] Dr. Tong Santiago Interpretation: Comment Normal [facility] Comment on above: Result Comment: Not infected with HCV unless early or acute infection is suspected (which may be delayed in an immunocompromised individual), or other evidence exists to indicate HCV infection. Performed By: #### R UBIGG #### [facility] [address] [place] [address] Dr. Tong Santiago RPR QUANTon 05-24-2022 Rapid Plasma Reagin, Quant Non-Reactive Normal NonRea<1:1 [facility] Comment on above: Result Comment: Plea se Note: This test does not meet current guidelines for screening and diagnosis of syphilis. This test is intended for following treatment response in patients being treated for syphilis infection. To screen for syphilis infection, a reflex cascade that includes both RPR and a treponema-specific assay should be utilized, such as Treponema pallidum (Syphilis) Screening Guy (513422) or Rapid Plasma Reagin (RPR) Test With Reflex to Quantitative RPR and Confirmatory Treponema pallidum Antibodies (661224). Performed By: #### R PRQ #### [facility] [address] [place] [address] Dr. Tong Santiago RUBELLA AB IGGon 05-24-2022 Rubella Antibodies, IgG 3.10 index Normal Immune >0.99 [facility] Comment on above: Result Comment: Non- immune <0.90 Equivocal 0.90 - 0.99 Immune >0.99 Performed By: #### R UBIGG #### [facility] [address] [place] [address] Dr. Tong Santiago CBC AUTO DIFFon 05-23-2022 BASO # 0.0 103/ul Normal 0.0-0.1 [facility] Comment on above: Performed By: #### C BC #### [facility] [address] [place] [address] Dr. Tong Santiago Basophils/100 WBC (Bld) 0.4 % Normal 0.2-2.0 [facility] Comment on above: Performed By: #### C BC #### [facility] [address] [place] [address] Dr. Tong Santiago EO # 0.1 103/ul Normal 0.0-0.7 [facility] Comment on above: Performed By: #### C BC #### [facility] [address] [place] [address] Dr. Tong Santiago Eosinophils/100 WBC (Bld) 0.9 % Normal 0.9-7.0 [facility] Comment on above: Performed By: #### C BC #### [facility] [address] [place] [address] Dr. Tong Santiago Erythrocyte distribution width (RBC) [Ratio] 12.4 % Normal 11.0-15.0 [facility] Comment on above: Performed By: #### C BC #### [facility] [address] [place] [address] Dr. Tong Santiago Hematocrit (Bld) [Volume fraction] 39.0 % Normal 36.0-48.0 [facility] Comment on above: Performed By: #### C BC #### [facility] [address] [place] [address] Dr. Tong Santiago Hemoglobin (Bld) [Mass/Vol] 13.6 g/dL Normal 12.0-16.0 [facility] Comment on above: Performed By: #### C BC #### [facility] [address] [place] [address] Dr. Tong Santiago IG # 0.03 10e3/ul Normal 0.00-0.03 [facility] Comment on above: Performed By: #### C BC #### [facility] [address] [place] [address] Dr. Tong Santiago IG % 0.3 % Normal 0.0-0.5 [facility] Comment on above: Performed By: #### C BC #### [facility] [address] [place] [address] Dr. Tong Santiago LYMPH # 2.2 103/ul Normal 1.2-3.8 [facility] Comment on above: Performed By: #### C BC #### [facility] [address] [place] [address] Dr. Tong Santiago Lymphocytes/100 WBC (Bld) 20.3 % Critically low 20.5-60.0 [facility] Comment on above: Performed By: #### C BC #### [facility] [address] [place] [address] Dr. Tong Santiago MANUAL DIFF REQ NO Normal [facility] Comment on above: Performed By: #### C BC #### [facility] [address] [place] [address] Dr. Tong Santiago MCH (RBC) [Entitic mass] 29.6 pg Normal 26.7-34.0 [facility] Comment on above: Performed By: #### C BC #### [facility] [address] [place] [address] Dr. Tong Santiago MCHC (RBC) [Mass/Vol] 34.9 g/dL Normal 29.9-35.2 [facility] Comment on above: Performed By: #### C BC #### [facility] [address] [place] [address] Dr. Tong Santiago MCV (RBC) [Entitic vol] 84.8 fL Normal 81.0-99.0 [facility] Comment on above: Performed By: #### C BC #### [facility] [address] [place] [address] Dr. Tong Santiago MONO # 0.6 103/ul Normal 0.3-0.8 [facility] Comment on above: Performed By: #### C BC #### [facility] [address] [place] [address] Dr. Tong Santiago Monocytes/100 WBC (Bld) 5.8 % Normal 1.7-12.0 [facility] Comment on above: Performed By: #### C BC #### [facility] [address] [place] [address] Dr. Tong Santiago NEUT # 7.9 103/ul Critically high 1.4-6.[address] [facility] Comment on above: Performed By: #### C BC #### [facility] [address] [place] [address] Dr. Tong Santiago Neutrophils/100 WBC (Bld) 72.3 % Normal 43.0-75.0 [facility] Comment on above: Performed By: #### C BC #### [facility] [address] [place] [address] Dr. Tong Santiago Platelet mean volume (Bld) [Entitic vol] 8.8 fL Critically low 9.5-13.5 [facility] Comment on above: Performed By: #### C BC #### [facility] [address] [place] [address] Dr. Tong Santiago PLT 338 103/ul Normal 150-450 [facility] Comment on above: Performed By: #### C BC #### [facility] [address] [place] [address] Dr. Tong Santiago RBC 4.60 106/ul Normal 4.20-5.40 [facility] Comment on above: Performed By: #### C BC #### [facility] [address] [place] [address] Dr. Tong Santiago WBC 10.9 103/ul Normal 4.0-11.0 [facility] Comment on above: Performed By: #### C BC #### [facility] [address] [place] [address] Dr. Tong Santiago CULTURE URINEon 05-23-2022 CULTURE URINE Culture Observations : LIGHT GROWTH OF MIXED GENITAL MATT. NO POTENTIAL PATHOGENS SEEN. Normal [facility] Comment on above: Performed By: #### R UBIGG #### [facility] [address] [place] [address] Dr. Tong Santiago GLYCOHEMOGLOBIN A1Con 2022 ADA RECOMMENDATION SEE BELOW Normal [facility] Comment on above: Result Comment: ADA RECOMMENDED LIMIT 4.0 - 6.0 ADA THERAPEUTIC TARGET < 7.0 ACTION SUGGESTED > 7.0 Performed By: #### A 1C #### [facility] [address] [place] [address] Dr. Tong Santiago Glucose [Mass/Vol] 91 mg/dL Normal [facility] Comment on above: Performed By: #### A 1C #### [facility] [address] [place] [address] Dr. Tong Santiago HbA1c (Bld) [Mass fraction] 4.8 % Normal 4.5-6.2 [facility] Comment on above: Performed By: #### A 1C #### [facility] [address] [place] [address] Dr. Tong Santiago ENOCH BOX TEST PT SEND OUTo n 05-23-2022 SENT TO REF LAB 05/23/[address] [facility] Comment on above: Performed By: #### N BOX #### [facility] [address] [place] [address] Dr. Tong Santiago TYPE AND SCREENon 05-23-2022 TYPE AND SCREEN Negative Normal [facility] Comment on above: Performed By: #### R UBIGG #### [facility] [address] [place] [id number] Dr. Tong Santiago US PREG TVon 04-22-2022 US PREG TV EXAMINATION: US PREG TV HISTORY: Missed period COMPARISON: No relevant comparison available. FINDINGS: GESTATIONAL SAC: Present and normal appearing. YOLK SAC: Present and normal appearing. POLE: Present and normal appearing. CARDIAC: Present. UTERUS: Normal size and appearance. OVARIES: Right: Normal. Left: Corpus lutein cyst. CERVIX: 4.1 cm in length and closed. CUL-DE-SAC: Normal. OTHER: None. AGE BY LMP: 10 weeks 3 days LANCE BY LMP: 11/15/2022 AGE BY US CRL: 6 weeks 4 days LANCE BY US CRL: 12/12/2022 IMPRESSION: 1. Single live intrauterine . 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 Fredy Plaza. Here today with acute complaints, suspects urinary tract infection. Dysuria: yes Frequency/Urgency: yes Hematuria: yes Fever: low grade fever yesterday 99.0 N/V: no Flank or Abdominal Pain: no, yet notes mid lower back pain. Bowel complaints: no Duration: 1 day Home treatments: None Relevant PMH: Urethral dilation 5 years ago. Wonders if this needs repeated, otherwise denies. Hx Kidney Stones: no Hx Recurrent UTIs: yes, previous to urology procedure. Concern for STI/: no LMP: 8.21.21 Review of Systems PHQ Score Initial Depression Screen Score: 0 Review of Systems: See HPI. Constitutional: See HPI. Musculoskeletal: Mid lower back achiness. Skin: Denies new skin lesions, rash. Gastrointestinal: Mid lower suprapubic cramping which patient notes is mild. Has been eating and drinking appropriately. Infections: Denies at risk for HIV infection, sexually transmitted diseases. Genitourinary: See HPI. Physical Exam Vitals & Measurements T: 37.1 ?C (Oral) HR: 75(Peripheral) BP: 114/78 SpO2: 99% HT: 162.0 cm HT: 162 cm WT: 59.0 kg WT: 59 kg BMI: 22.48 General: Well developed, well nourished, female adult in no acute distress sitting upright on exam table. Fianc? present. Head: Normocephalic/atrauma tic. Eyes: No conjunctival irritation, pupils symmetric. No icterus. Ears: Grossly normal hearing. Mouth: Wearing mask, talkative. Chest: No distress. Abdomen: Abdomen is soft and nontender. No CVA tenderness, bilaterally. Musculoskeletal: Steady gait. Skin: Skin is fairly tanned, warm and dry. Mental Status: Alert and cooperative. Pleasant, appreciative. Assessment/Plan 1. Acute cystitis with hematuria (N30.01: Acute cystitis with hematuria) Urine sample provided today in office, consistent with infectious process, will treat accordingly. Recent oral antibiotic use includes doxycycline, no longer taking. Cephalexin prescribed, reviewed directions for use, complete as directed. Instructed patient to wipe from front to back, urinate after intercourse and avoid excessive soaking in bathtub. Encouraged cotton underwear. Encouraged increase in oral fluids. Reviewed signs and symptoms of pyelonephritis and when to seek emergency department evaluation. To notify office if new or worsening symptoms develop or no improvement is found. Patient verbalizes understanding and agrees with plan. Ordered: cephalexin, 500 mg = 1 cap(s), Oral, q12hr, X 7 day(s), # 14 cap(s), Refills(s) 0, Pharmacy: [id number] 162, cm, 12/27/20 9:48:00 EDT, Height/Length Dosing, 59, kg, 12/27/20 9:48:00 EDT, Weight Dosing 2. History of urethral stricture (Z87.448: Personal history of other diseases of urinary system) Denies recurrence of urinary tract infections following dilation of urethral stricture 5 years ago, if this becomes a recurrent issue would advise follow-up with urology for further evaluation. 3. BMI 22.0-22.9, adult (Z68.22: Body mass index [BMI] 22.0-22.9, adult) Maintain a healthy weight. Ordered: cephalexin, 500 mg = 1 cap(s), Oral, q12hr, X 7 day(s), # 14 cap(s), Refills(s) 0, Pharmacy: [id number], 162, cm, 12/27/20 9:48:00 EDT, Height/Length Dosing, 59, kg, 12/27/20 9:48:00 EDT, Weight Dosing Orders: Urnls Dip Stick Non-Auto w/o Micrscpy POC [id number] Please Note: Portions of this chart may have been created using [employer] voice recognition software. Occasional wrong-word or sound-like substitutions may have occurred due to inherent limitations of the voice recognition software. Please read the chart carefully and recognize, using context, where the substitutions have occurred. Follow-up With When Contact Information Светлана JESUS CNP Only if needed Additional Instructions: Keep routine follow-up appointments with PCP as scheduled. Patient Education Urinary Tract Infection, Mott-st-Nizr Problem List/Past Medical History Ongoing Ankle fracture BMI 22.0-22.9, adult History of urethral stricture Historical No qualifying data Procedure/Surgical History None. Medications cephalexin 500 mg Cap, 500 mg= 1 cap(s), Oral, q12hr Sprintec oral tablet, 1 tab(s), Oral, Daily Allergies No Known Allergies Social History Alcohol - Denies Alcohol Use, 08/03/2013 Substance Abuse - Denies Substance Abuse, 08/03/2013 Tobacco - Denies Tobacco Use, 08/03/2013 Never (less than 100 in lifetime) Tobacco Use:. Never Smokeless Tobacco Use:., 12/27/2020 Household tobacco concerns: Yes., 08/03/2013 Family History Heart murmur: Mother. Lab Results Ambulatory Point of Care Results Bilirubin Urine Dipstick: Negative (12/27/20 09:52:00) Blood Urine Dipstick: Trace-intact (12/27/20 09:52:00) Glucose Urine Dipstick: Negative (12/27/20 09:52:00) Ketones Urine Dipstick: Negative (12/27/20 09:52:00) Leukocytes Urine Dipstick: Trace (12/27/20 (more content not included)... [employer] [facility] Comment on above: Result Comment: Elec tronically Signed By: Светлана JESUS CNP\.damaris\Date and Time Signed: 12/27/20 10:17 EDT Patient Educationon 12-28-19 Patient Education Urinary Tract Infection A urinary tract infection (UTI) can occur any place along the urinary tract. The tract includes the kidneys, ureters, bladder, and urethra. A type of germ called bacteria often causes a UTI. UTIs are often helped with antibiotic medicine. HOME CARE ? If given, take antibiotics as told by your doctor. Finish them even if you start to feel better. ? Drink enough fluids to keep your pee (urine ) clear or pale yellow. ? Avoid tea, drinks with caffeine, and bubbly (carbonated ) drinks. ? Pee often. Avoid holding your pee in for a long time. ? Pee before and after having sex (intercourse ). ? Wipe from front to back after you poop (bowel movement ) if you are a woman. Use each tissue only once. GET HELP RIGHT AWAY IF: ? You have back pain. ? You have lower belly (abdominal ) pain. ? You have chills. ? You feel sick to your stomach (nauseous ). ? You throw up (vomit ). ? Your burning or discomfort with peeing does not go away. ? You have a fever. ? Your symptoms are not better in 3 days. MAKE SURE YOU: ? Understand these instructions. ? Will watch your condition. ? Will get help right away if you are not doing well or get worse. Document Released: 09/12/2008 Document Revised: 12/19/2012 Document Reviewed: 10/25/2012 ExitCare? Patient Information ?2013 [employer] [facility] Coding Summary.on 07-17-2020 Coding Summary. CODING DATE: 07/17/2020 FINAL [facility] STATUS: Home (Routine DC) PAYOR: Medicaid ADMIT DX: REASON FOR VISIT DX: Z01.419 Encounter for gynecological examination (general) (routine) without abnormal findings FINAL DX: PRINCIPAL: Z01.419 Encounter for gynecological examination (general) (routine) without abnormal findings SECONDARY: Z11.51 Encounter for screening for human papillomavirus (HPV) PYMT PROC APC STAT DESCRIPTION DOCTOR NAME DATE NOTE: The code number assigned matches the documented diagnosis and / or procedure in the patient's chart. However, the narrative phrase printed from the coding software may appear abbreviated, or result in slightly different terminology. Coded By: Jo Valentin CphT Date Saved: 07/17/2020 04:47 pm Normal [facility] Lab Miscellaneous-LCon 06-23 Lab Miscellaneous COMMENT Invalid Interpretation Code [facility] Comment on above: Result Comment: Test Ordered: [id number] IGP,rfx Aptima HPV all pth IGP,rfx Aptima HPV all pth Note WB TESTS RESULT FLAG UNITS REF RANGE LAB Clinician Provided Cytology Information No. of containers..01 ThinPrep Vial DIAGNOSIS: 01 NEGATIVE FOR INTRAEPITHELIAL LESION OR MALIGNANCY. 01 Satisfactory for evaluation. Endocervical and/or squamous metaplastic cells (endocervical component) are present. 01 No Shearer Professor Of Theology (ASCP) 01 Note 01 The Pap smear is a screening test designed to aid in the detection of premalignant and malignant conditions of the uterine cervix. It is not a diagnostic procedure and should not be used as the sole means of detecting cervical cancer. Both false-positive and false-negative reports do occur. Test Methodology: Note 01 This liquid based ThinPrep(R) pap test was screened with the use of an image guided system. . 01 The HPV DNA reflex criteria were not met with this specimen result therefore, no HPV testing was performed. FLAG LEGEND: L-Low Normal,H-High Normal,LL-Alert Low,HH-Alert High <-Panic Low,>-Panic High,A-Abnormal,AA-Critical Abnormal Performed at: [facility] [address] [id number] Sheila Cardona MD, Performed at: [facility] [address] [id number] MD Brendan Sosa Performed By: #### 1 [id number] ####[address] [address] Lab Miscellaneous-LCon 06-19 Test Code 537266 Invalid Interpretation Code [facility] Comment on above: Performed By: #### 1 [id number] ####[address] [address] Test Name IG PAP RFLX HPV Invalid Interpretation Code [facility] Comment on above: Performed By: #### 1 [id number] ####[place] [id number] Physician Orderon 06-19-2020 Physician Order [id number]# 1.00CD:127 Normal [facility] Quantiferon-TB Plus (Client Incubated)on 05-10-2020 Gamma interferon background IA Qn (Bld) 0.03 International_Unit/mL Invalid Interpretation Code [facility] Comment on above: Performed By: #### 1 [id number], [id number] #### [facility] [address] [place] [address] M. tuberculosis stim IFN-g by CD4+ CD8+ T-cells corrected for background Qn (Bld) 0.02 International_Unit/mL Invalid Interpretation Code [facility] Comment on above: Performed By: #### 1 [id number], [id number], [id number], [id number] #### [facility] [address] [place] [address] M. tuberculosis stim IFN-g by CD4+ T-cells corrected for background Qn (Bld) 0.03 International_Unit/mL Invalid Interpretation Code [facility] Comment on above: Performed By: #### 1 [id number], [id number], [id number], [id number] #### [facility] [address] [place] [address] M. tuberculosis stim IFN-g Ql (Bld) [Interp] Negative Invalid Interpretation Code Negative [facility] Comment on above: Result Comment: The specimen received for QuantiFERON testing was incubated by the ordering institution. Specific procedures outlined in our Directory of Services and in the package insert for the QuantiFERON Gold (In Tube) test must be followed to enable for proper stimulation of cells for the production of interferon gamma. Performed at: [address] [id number] PhD Mami Sands Performed By: #### 1 [id number], [id number], [id number], [id number] #### [facility] [address] [place], [place] [id number] Mitogen stimulated gamma interferon Qn (Bld) >10.00 Invalid Interpretation Code [facility] Comment on above: Performed By: #### 1 [id number], [id number], [id number], [id number] #### [facility] [address] [place], [place] [id number] Service comment (Unsp spec) [Interp] Comment Invalid Interpretation Code [facility] Comment on above: Result Comment: The QuantiFERON-TB Gold Plus result is determined by subtracting the Nil value from either TB antigen (Ag) tube. The mitogen tube serves as a control for the test. Performed By: #### 1 [id number], [id number], [id number], [id number] #### [facility] [address] [place] [address] Hep Bs Abon 05-08-2020 HBV surface Ab Ql (S) Non-Reactive Invalid Interpretation Code [facility] Comment on above: Result Comment: Non Reactive: Inconsistent with immunity, less than 10 mIU/mL Reactive: Consistent with immunity, greater than 9.9 mIU/mL Performed at: [address] [id number] PhD Mami Sands Performed By: #### 1 [id number], [id number], [id number], [id number] #### [facility] [address] [place] [address] Measles/Mumps/Rubella Immuni tyon 05-08-2020 MeV IgG IA Qn (S) {index_val} Invalid Interpretation Code Immune >16.4 [facility] Comment on above: Result Comment: Nega tive <13.5 Equivocal 13.5 - 16.4 Positive >16.4 Presence of antibodies to Rubeola is presumptive evidence of immunity except when acute infection is suspected. Performed By: #### 1 [id number], [id number], [id number], [id number] #### [facility] [address] [place] [address] MuV IgG IA Qn (S) >300.0 Invalid Interpretation Code Immune >10.9 [facility] Comment on above: Result Comment: Nega tive <9.0 Equivocal 9.0 - 10.9 Positive >10.9 A positive result generally indicates past exposure to Mumps virus or previous vaccination. Performed at: [address] [id number] PhD Mami Sands Performed By: #### 1 [id number], [id number], 7284075, [id number] #### [facility] [address] [place] [address] Rubella virus IgG Qn (S) 4.04 [IU]/mL Invalid Interpretation Code Immune >0.99 [facility] Comment on above: Result Comment: Non- immune <0.90 Equivocal 0.90 - 0.99 Immune >0.99 Performed By: #### 1 [id number], [id number], [id number], [id number] #### [facility] [address] [place] [address] Varic IgGon 05-08-2020 VZV IgG IA Qn (S) 197 Invalid Interpretation Code Immune >165 [facility] Comment on above: Result Comment: Nega tive <135 Equivocal 135 - 165 Positive >165 A positive result generally indicates exposure to the pathogen or administration of specific immunoglobulins, but it is not indication of active infection or stage of disease. Performed at: [address] [id number] PhD Mami Sands Performed By: #### 1 [id number], [id number], [id number], [id number] #### [facility] [address] [place] [address] Consent for Treatmenton 04-11 Consent for Treatment [id number]#1 .00CD:127 [facility] Physician Orderon 05-07-2020 Physician Order [id number]# 1.00CD:127 [facility] In office Testingon 01-22-20 20 In office Testing [id number]# 1.00CD:127 [facility] Consent for Treatmenton 01-08 Consent for Treatment [id number]# 1.00CD:127 [facility] Consent for Treatmenton Consent for Treatment [id number]# 1.00CD:127 [facility] Vital Signs Date Time Vital Sign Value Performing Clinician Facility 12-26-2024 08:33-0400 Body mass index (BMI) [Ratio] 22.73 kg/m2 Ese Beltrán PA Work Phone: [facility] 12-26-2024 08:33-0400 Body weight 60.06 kg Ese Leigh Ann PA Work Phone: [facility] 12-26-2024 08:33-0400 Diastolic blood pressure 60 mm[Hg] Ese Leigh Ann PA Work Phone: [facility] 12-26-2024 08:33-0400 Systolic blood pressure 100 mm[Hg] Ese Leigh Ann PA Work Phone: [facility] 12-14-2023 11:43-0400 Body mass index (BMI) [Ratio] 21.8 kg/m2 Ese Leigh Ann PA Work Phone: [facility] 12-14-2023 11:43-0400 Body weight 57.61 kg Ese Leigh Ann PA Work Phone: [facility] 12-14-2023 11:43-0400 Diastolic blood pressure 60 mm[Hg] Ese Leigh Ann PA Work Phone: [facility] 12-14-2023 11:43-0400 Systolic blood pressure 100 mm[Hg] Ese Leigh Ann PA Work Phone: [facility] 06-23-2022 02:06-0400 Body weight 64.4112 kg ESE BELTRÁN . [facility] Comment on above: Performed By: #### AFPMAT #### [facility] [address] [place] [address] Dr. Tong Santiago Encounters Encounter Date Encounter Type Care Provider Facility Start: 12-26-2024 End: 12-26-2024 Bamboo flowsheet Ese Beltrán PA Work Phone: [facility] Start: 12-26-2024 End: 12-26-2024 Bamboo flowsheet Ese Beltrán PA Work Phone: [facility] Start: 12-26-2024 End: 12-26-2024 Patient encounter procedure Ese CONTRERAS Work Phone: [facility] Work Phone: Start: 12-26-2024 End: 12-26-2024 Periodic preventive med est patient 18-39 yrs Ese CONTRERAS Work Phone: [facility] Carli EVERETTGYN Comment on above: Well woman exam with routine gynecological exam; Acute vaginitis Start: 12-14-2023 End: 12-14-2023 Bamboo flowsheet Ese CONTRERAS Work Phone: [facility] Start: 12-14-2023 End: 12-14-2023 Bamboo flowsheet Ese CONTRERAS Work Phone: [facility] Start: 12-14-2023 End: 12-14-2023 Clinisync Result Encounter Ese CONTRERAS Work Phone: [facility] External Department Unsolicited Start: 12-14-2023 End: 12-14-2023 Patient encounter procedure Ese CONTRERAS Work Phone: [facility] Work Phone: Start: 12-14-2023 End: 12-14-2023 Periodic preventive med est patient 18-39 yrs Ese CONTRERAS Work Phone: [facility] Comment on above: Well woman exam with routine gynecological exam; Missed menses; Cervical inflammation Start: 12-14-2023 End: 12-14-2023 ambulatory ESE BELTRÁN Not Available Start: 08-25-[address] CHARLETTE STANTON . Facili ty:[facility] Start: 07-25-2022 End: 07-26-2022 ambulatory ESE BELTRÁN . Facility:[facility] Start: 06-21-2022 End: 06-21-2022 ambulatory ESE BELTRÁN . Facility:[facility] Start: 06-21-2022 End: 06-22-[address] CHARLETTE STANTON . Facility:[facility] Start: 05-23-2022 End: 05-24-[address] CHARLETTE STANTON . Facility:[facility] Start: 04-22-2022 End: 04-23-[address] CHARLETTE STANTON . Facility: Procedures Date Procedure Procedure Detail Performing Clinician Start: 12-14-2023 ALL CBC WITH AUTO DIFF Ese CONTRERAS Work Phone: Start: 12-14-2023 Urine test visual color cmprsn meths Ese CONTRERAS Work Phone: Start: 06-21-2022 Cytp cerv/vag auto t hin layer prep mnl screen Charlette Stanton DO Work Phone: Plan of Treatment Date Care Activity Detail Author Start: 12-26-2024 End: 12-26-2024 Patient encounter procedure 12/26/2024 8:30 AM EDT Procedure Visit ROXY EVERETTGYN [address] [place] [address] Ese Beltrán PA [address] [place], [place] [address] Arrived [facility] Carli EVERETTGYN Comment on above: Arrived Start: 12-14-2023 End: 12-13-2024 Lipid 1996 panel - Serum or Plasma Lipid panel Lab Routine Well woman exam with routine gynecological exam Expected: 12/14/2023 (Approximate), Expires: 12/13/2024 [facility] Comment on above: Expected: 12/14/2023 (Approximate), Expires: 12/13/2024 Start: 12-14-2023 End: 12-14-2023 Patient encounter procedure 12/14/2023 11:00 AM EDT Office Visit [facility] [address] [place] [address] Ese Beltrán PA [address] [place], [place] [id number] Arrived [facility] Comment on above: Arrived CBC W Auto Different ial panel - Blood CBC and differential Lab Routine Well woman exam with routine gynecological exam Ordered: 12/14/2023 [facility] Comment on above: Ordered: 12/14/2023 Comprehensive metabo lic 2000 panel - Serum or Plasma Comprehensive metabolic panel Lab Routine Well woman exam with routine gynecological exam Ordered: 12/14/2023 [facility] Comment on above: Ordered: 12/14/2023 Cytology Cervical or vaginal smear or scraping study Pap Smear Pathology and Cytology Routine Well woman exam with routine gynecological exam Ordered: 12/14/2023 [facility] [employer] Work Phone: Comment on above: Ordered: 12/14/2023 Cytology Cervical or vaginal smear or scraping study Pap Smear Pathology and Cytology Routine Well woman exam with routine gynecological exam Ordered: 12/26/2024 [facility] [employer] Work Phone: Comment on above: Ordered: 12/26/2024 Hemoglobin A1c/Hemoglobin.total in Blood Hemoglobin A1c Lab Routine Well woman exam with routine gynecological exam Ordered: 12/14/2023 [facility] Comment on above: Ordered: 12/14/2023 Thyrotropin [Units/volume] in Serum or Plasma TSH Lab Routine Well woman exam with routine gynecological exam Ordered: 12/14/2023 [facility] Comment on above: Ordered: 12/14/2023 Payers Date Payer Category Payer Private Health Insurance [id number] 2023 Private Health Insurance [id number] 2020 Medicaid [employer] [facility] [id number] 2020-Present [address] [address] [place] [address] [id number] 1999 Unknown [id number] [id number]. 593 1999 Unknown [id number] [id number]. 593 1999 Unknown [id number] [id number]. 593 1999 Unknown [id number] 2.16.840.1.587629.3.579.2. 593 1999 Unknown [id number] [id number]. 593 1999 Unknown [id number] [id number]. 593 1999 Unknown [id number] [id number]. 1259 1959 Self-pay 1959 Unknown [id number] Unknown [id number] [id number]. 593 Social History Date Type Detail Facility Tobacco smoking stat [facility] Tobacco smoking consumption unknown [facility] Healthcare Start: 1999 Sex assigned at Not [facility] identity [facility] History of Present illness Narrative 12-26-2024 [facility] - 12/26/2024 8:30 AM EDT Note Date & Type Note Facility 12-26-2024 History of Presen t illness Narrative Reason for Appointment: Patient ID: Marcelle Pendleton is a 24 y.o. female who presents for [facility] Women Visit Patient presents today for Annual [...] nursing note reviewed. Exam conducted with a kick press setter present. Vitals: Estimated body mass index is 22.73 kg/m as calculated from the following: Height as [...] episotomy scar. We will send in clobetasole cream to see if it helps with symptoms. Pt also encouraged to use coconut oil to area. Follow Up: Patient is to return in one year for annual unless needed otherwise. Pt will follow up with telehealth after trying medications Documented by Marci Acevedo LPN on behalf of: [facility] documented in this encounter [facility] History of Present illness Narrative 12-14-2023 [facility] - 12/14/2023 11:00 AM EDT Note Date & Type Note Facility 09-05-2024 History of Presen t illness Narrative Reason for Appointment: Patient ID: Marcelle Pendleton is a 23 y.o. female who presents for [facility] Visit Patient presents today for Annual Exam. MEDICATIONS Current Outpatient Medications Medication Instructions norethindrone (MICRONOR) 0.35 mg, Oral, Daily ALLERGIES No Known [...] of Onset Breast cancer Mother SURGICAL HISTORY No past surgical history on file. REVIEW OF SYSTEMS Review of Systems: Review [...] nursing note reviewed. Exam conducted with a kick press setter present. Vitals: Estimated body mass index is 21.8 kg/m as calculated from the following: Height as of 08/16/22: 5' 4 . Weight as of this encounter: 127 lb. BP: 100/60 No LMP recorded. ASSESSMENT & PLAN ICD-10-CM 1. Well woman exam with routine gynecological exam Z01.419 Pap Smear 2. Missed menses N92.6 POCT , urine manually resulted Patient presents today for an annual exam. Patient states she is doing well and has no complaints. Pap was obtained without difficulty. Patient had not had period since prior to and she has not been . Patient mom diagnosed with breast cancer we will send referral for genetic testing for this. We will refer her to [facility] as she lives in [place] and that's where her sister went. Patient will start on medication for Cervical inflammation. Documented by Veronica Álvarez LPN on behalf of: BEN Hsu documented in this encounter [facility] Evaluation note Note Date & Type Note Facility Evaluation note Diagnosis Well woman exam with routine gynecological exam Routine gynecological examination Missed menses Cervical inflammation Cervicitis and endocervicitis documented in this encounter [facility] Evaluation note Note Date & Type Note Facility Evaluation note Diagnosis Well woman exam with routine gynecological exam Routine gynecological examination Acute vaginitis Unspecified vaginitis and vulvovaginitis documented in this encounter [facility] Summary Purpose Family History No Family History Records FoundNo Family History Records FoundNo Family History Records Found Advance Directives No Advanced Directives Records FoundNo Advanced Directives Records FoundNo Advanced Directives Records Found Additional Source Comments INFORMATION SOURCE (unrecogn ized section and content) DATE CREATED AUTHOR 12/28/2020 [facility] DATE CREATED AUTHOR AUTHOR'S ORGANIZ ATION 08/22/[address] [facility] DATE CREATED AUTHOR AUTHOR'S ORGANIZ ATION 12/16/2023 [facility] EPIC Care Teams (unrecognized sec tion and content) It Support Consultant Relationship Specialty Start Date End Date Fredy Plaza MD [address] [place] [phone] PCP - General Family Medicine 09/15/22 It Support Consultant Relationship Specialty Start Date End Date Fredy Plaza MD [address] [phone] PCP - General Family Medicine 09/15/22 It Support Consultant Relationship Specialty Start Date End Date Fredy Plaza MD [address] [phone] PCP - General Family Medicine 09/15/22 It Support Consultant Relationship Specialty Start Date End Date Fredy Plaza MD PCP - General Family Medicine 09/15/22 It Support Consultant Relationship Specialty Start Date End Date Fredy Plaza MD PCP - General Family Medicine 09/15/22 Reason for Visit (unrecogniz ed section and content) Reason Comments Well Women Visit FOR RECORDS PERTAINING TO PATIENTS WHO ARE OR HAVE BEEN ENROLLED IN A CHEMICAL DEPENDENCY/SUBSTANCEABUSE PROGRAM, SOME INFORMATION MAY BE OMITTED. This clinical summary was aggregated from multiple sources. Caution should be exercised in using it in the provision of clinical care. This summary normalizes information from multiple sources, and as a consequence, information in this document may materially change the coding, format and clinical context of patient data. In addition, data may be omitted in some cases. CLINICAL DECISIONS SHOULD BE BASED ON THE PRIMARY CLINICAL RECORDS. [email or web address] [facility]. provides no warranty or guarantee of the accuracy or completeness of information in this document.
[2025-01-01 08:09] LABS: Age Gdln ACOG Testing Note (.); IGP, rfx Aptima HPV ASCU Note (.)
== END 2024-12-26 13:39 | disposition home or self-care (01) ==
LOC: LAB 13:38
PROVIDERS: PCP Family Medicine; Visit Provider Physician Assistant
DX: Z01.419 Encounter for gynecological examination (general) (routine) without abnormal findings (principal)
CPT/HCPCS: 88175